=== PATIENT | male | born 1990 ===

== ENCOUNTER 2020-03-14 09:11 | Emergency (ER) | payer OTHER, SELFPAY ==
[2020-03-14 09:24] VITALS: BP 144/76; PULSE 74; RESP 18; TEMP 36.6; O2SAT 96; BMI 35.4
--- NOTE | 2020-03-14 09:36 | XR_ITS ---
EXAMINATION: RIGHT ANKLE AND RIGHT FOOT. CLINICAL INFORMATION: Right ankle/foot pain. COMPARISON: None TECHNIQUE: Right foot 3 views. Right ankle 2 views. FINDINGS: RIGHT ANKLE: There is a healed distal fibular fracture stabilized by metallic plate and screws. Also visualized reveal medial malleolar fracture with solitary screw. The ankle mortise and subtalar joints are normal. RIGHT FOOT: There is a small acute fracture at base of fifth metatarsal with displacement.. No additional fractures seen. There is mild soft tissue swelling lateral midfoot. XR/XR ankle RT min 3V IMPRESSION: Acute fracture with displacement base of fifth metatarsal . No other fractures seen.. There is mild lateral midfoot soft tissue swelling. Healed distal fibular and medial malleolar fractures with hardware in place. No recurrent new fracture seen in the ankle region.
--- NOTE | 2020-03-14 09:36 | XR_ITS ---
EXAMINATION: RIGHT ANKLE AND RIGHT FOOT. CLINICAL INFORMATION: Right ankle/foot pain. COMPARISON: None TECHNIQUE: Right foot 3 views. Right ankle 2 views. FINDINGS: RIGHT ANKLE: There is a healed distal fibular fracture stabilized by metallic plate and screws. Also visualized reveal medial malleolar fracture with solitary screw. The ankle mortise and subtalar joints are normal. RIGHT FOOT: There is a small acute fracture at base of fifth metatarsal with displacement.. No additional fractures seen. There is mild soft tissue swelling lateral midfoot. XR/XR foot RT min 3V IMPRESSION: Acute fracture with displacement base of fifth metatarsal . No other fractures seen.. There is mild lateral midfoot soft tissue swelling. Healed distal fibular and medial malleolar fractures with hardware in place. No recurrent new fracture seen in the ankle region.
[2020-03-14] MEDS: Ibuprofen 800 MG TABLET PO (09:44)
[2020-03-14] MEDS: oxyCODONE HCl Immed Release 5 MG TABLET PO (09:44)
--- NOTE | 2020-03-14 10:19 | ED_ITS ---
HPI - Extremity Injury (Lower) General Chief Complaint: Extremity Injury, Lower Stated Complaint: rt foot inj Time Seen by Provider: 03/14/20 09:18 Source: patient Mode of arrival: ambulatory Limitations: no limitations History of Present Illness HPI Narrative: 29yoM presenting to the ED c c/o of Rigt foot pain/swelling after he twisted his foot/ankle from falling down the last two steps from tripping over a pumpkin. denies head injury or loss of consciousness. Reports he has had a fracture in the past to the right ankle and has hardware there. Denies any other injuries complaints or concerns at this time. Related Data Previous Rx's Medication Instructions Recorded ibuprofen 800 mg PO Q8H PRN #14 tab 03/14/20 oxycodone-acetaminophen [Percocet] 1 tab PO Q6H PRN #10 tab 03/14/20 Allergies Allergy/AdvReac Type Severity Reaction Status Date / Time No Known Allergies Allergy Verified 03/14/20 09:26 Review of Systems Review of Systems: Constitutional : No changes in activity, No lethargy, No recent prior head injury, No agitation, No increased fussiness ENT/Mouth : No Ear Pain, No Nasal discharge/drainage Eyes: No Eye Pain, No Swelling, No Redness, No Foreign Body, No Vision Changes Cardiovascular : No Chest Pain, No SOB Respiratory : No Cough Gastrointestinal : No Nausea, No Vomiting, No abdominal Pain Genitourinary : No Dysuria, No Urinary Frequency, No Urinary Incontinence, No Urgency, No Flank Pain Musculoskeletal : + joint pain, No neck stiffness, No back pain/injury Skin : No lacerations Neuro : No unsteady gait, No Paresthesias, No Loss of Consciousness, No altered mental status, No Headache Yes all other systems are reviewed and are negative [facility] Past Medical History Attestation statement: The following information was validated with the patient. Medical History No known health problems Social History Social History Advance Directives: No Advance Directives Information Provided: No Physical Exam Vital Signs: Vital Signs: Last Vital Signs Temp 97.9 F 03/14/20 09:24 Pulse 74 03/14/20 09:24 Resp 18 12/07/20 09:24 BP 144/76 H 12/07/20 09:24 Pulse Ox 96 03/14/20 09:24 Body Mass Index 35.4 vital signs have been reviewed as normal and appeared to be correct. Blood pressure normal. Heart rate normal. Respiration rate normal. Temperature normal. Oxygen saturation normal. Appearance: Alert. Oriented X3. No acute distress. Head: Normal external exam. Normocephalic. Atraumatic. No Monroy signs noted. No raccoon eyes noted Eyes: PERRLA. EOMI. Conjunctiva and sclera normal. Eyelids normal. ENT: Pharynx normal. Uvula midline. Moist mucous membranes. Neck: Normal inspection. Neck supple. FROM. No adenopathy. No meningeal signs. CVS: Normal heart rate and rhythm. Heart sound normal. No murmurs noted. Pulses normal throughout. Respiratory: No respiratory distress. Painless inspiration. Breath sounds normal. No wheezes/rales/rhonchi noted. Chest nontender. No accessory muscle usage noted or decreased air movement noted. Back: Full range of motion noted. Skin: Skin warm and dry. Normal skin color. Normal skin turgor. No rashes/lesions/lacerations noted. Extremities: TTP of right lateral aspect of foot at the base of the fifth Metatarsal with soft tissue swelling and contusion noted. Tenderness to palpation mildly to right ankle with mild soft tissue swelling. Otherwise no obvious deformity to right ankle. No laxity noted. Tendons and ligaments appear to be intact. Otherwise all other Extremities exhibit normal range of motion and nontender. Neuro: Oriented X 3. No motor deficit. No sensory deficit. Reflexes normal. Course Course Course Narrative: 29-year-old male presenting to the ED after he sustained a mechanical fall at home injuring his right foot/ ankle. Denies head injury or loss of consciousness. X-rays obtained and acute fracture with displacement base of 5th metatarsal noted with mild soft tissue swelling. No new fractures to right ankle. I consulted with orthopedic FELICIA Doyle who recommended a boot and to follow up. Therefore will place in a boot instructions follow-up with orthopedics and treat symptomatic long instructions return if any new or worsening symptoms. Patient understands agrees the plan. Procedures Orthopedic Splinting/Casting Injury #1: Side: right Lower Extremity Injury Location: foot Lower Extremity Immobilizer: boot orthosis MDM - Extremity Injury (Lower) Medical Records Attestation: I reviewed the patient's medical records. Imaging Data Right ankle/foot: Attestation: I personally reviewed and interpreted this imaging study as follows: Radiologist's impression: IMPRESSION: Acute fracture with displacement base of fifth metatarsal . No other fractures seen.. There is mild lateral midfoot soft tissue swelling. Healed distal fibular and medial malleolar fractures with hardware in place. No recurrent new fracture seen in the ankle region. Discharge Plan Discharge Clinical Impression: Ankle sprain and strain, Fall Fracture of fifth metatarsal bone Qualifiers: Encounter type: initial encounter Fracture type: closed Fracture alignment: d isplaced Laterality: right Qualified Code(s): S92.351A - Displaced fracture of fifth metatarsal bone, right foot, initial encounter for closed fracture Patient Disposition: Home, Self-Care Instructions: Toe Fracture (ED), Walking Boot (ED) Prescriptions: New ibuprofen 800 mg tablet 800 mg PO Q8H PRN (Reason: pain) Qty: 14 RF: 0 oxycodone-acetaminophen [Percocet] 5-325 mg tablet 1 tab PO Q6H PRN (Reason: pain) Qty: 10 RF: 0 Referrals: Evin Roman MD [Physician] - 1 week Stand Alone Forms: Work/School Release Print Language: [place]
== END 2020-03-14 10:50 | disposition home or self-care (01) ==
PROVIDERS: Emergency Provider Emergency Medicine; PCP Internal Medicine
DX: S92.351A Displaced fracture of fifth metatarsal bone, right foot, initial encounter for closed fracture (principal); S96.911A Strain of unspecified muscle and tendon at ankle and foot level, right foot, initial encounter; W10.8XXA Fall (on) (from) other stairs and steps, initial encounter; Y93.9 Activity, unspecified; Y92.018 Other place in single-family (private) house as the place of occurrence of the external cause; Y99.9 Unspecified external cause status
CPT/HCPCS: 73610; 73630; 99283

== ENCOUNTER 2020-05-10 10:59 | Outpatient (REF) | payer OTHER, SELFPAY ==
[2020-05-10 13:56] LABS: MANUAL DIFF FLAG NO
[2020-05-10 14:05] LABS: Basophils Absolute Auto 0.1 X10*3/uL (0.0-0.2); Basophils Percent Auto 0.6 % (0-2); Eosinophils Absolute Auto 0.2 X10*3/uL (0.0-0.4); Eosinophils Percent Auto 1.9 % (0-4); Hematocrit 44.4 % (42-52); Hemoglobin 14.8 g/dl (14.0-18.0); Imm Gran Abs Auto 0.12 X10*3/uL (0.00-0.03); Imm Gran Pct Auto 1.2 % (0.0-0.4); Lymphocytes Absolute Auto 2.6 X10*3/uL (1.2-4.9); Lymphocytes Percent Auto 26.8 % (20-40); Mean Corpuscular HGB Conc 33.3 g/dl (31.0-36.0); Mean Corpuscular Hemoglobin 29.4 pg (27.0-33.0); Mean Corpuscular Volume 88.1 fL (80-98); Monocytes Absolute Auto 0.7 X10*3/uL (0.1-1.2); Monocytes Percent Auto 7.3 % (2-11); Neutrophils Percent Auto 62.2 % (45-73); Platelet Count 214 X10*3/uL (160-400); Red Blood Count 5.04 X10*6/uL (4.60-5.80); Red Cell Distribution Width 12.3 % (11.0-16.0); White Blood Count 9.6 X10*3/uL (4.8-10.8)
[2020-05-10 14:36] LABS: Alanine Aminotransferase 23 U/L (0-40); Albumin Level 4.7 g/dL (3.5-5.0); Alkaline Phosphatase 63 U/L (39-117); Anion Gap 13 (12-20); Aspartate Amino Transferase 17 U/L (5-37); Bilirubin Total 0.7 mg/dL (0.0-1.0); Blood Urea Nitrogen 13 mg/dL (9-16); Calcium 9.2 mg/dL (8.4-10.2); Carbon Dioxide 29 mmol/L (22-29); Chloride 100 mmol/L (96-108); Estimated Glomerular Filt Rate > 60; Glucose Fasting 78 mg/dL (60-99); Potassium 4.2 mmol/L (3.3-5.1); Sodium 138 mmol/L (135-145); Total Protein 7.7 g/dL (6.5-8.0)
== END 2020-05-10 11:00 | disposition home or self-care (01) ==
LOC: HO.10HDL 10:59
PROVIDERS: Visit Provider Dermatology
DX: L40.0 Psoriasis vulgaris (principal)
CPT/HCPCS: 36415; 80053; 85025

== ENCOUNTER 2020-06-21 09:12 | Outpatient (REF) | payer OTHER, SELFPAY ==
[2020-06-21 10:12] LABS: MANUAL DIFF FLAG NO
[2020-06-21 10:20] LABS: Basophils Absolute Auto 0.1 X10*3/uL (0.0-0.2); Basophils Percent Auto 0.6 % (0-2); Eosinophils Absolute Auto 0.1 X10*3/uL (0.0-0.4); Eosinophils Percent Auto 1.8 % (0-4); Hematocrit 43.7 % (42-52); Hemoglobin 14.4 g/dl (14.0-18.0); Imm Gran Abs Auto 0.04 X10*3/uL (0.00-0.03); Imm Gran Pct Auto 0.5 % (0.0-0.4); Lymphocytes Absolute Auto 2.2 X10*3/uL (1.2-4.9); Lymphocytes Percent Auto 27.7 % (20-40); Mean Corpuscular Hemoglobin 29.8 pg (27.0-33.0); Mean Corpuscular Volume 90.3 fL (80-98); Mean Platelet Volume 11.2 fL (9.4-12.4); Monocytes Absolute Auto 0.5 X10*3/uL (0.1-1.2); Monocytes Percent Auto 6.6 % (2-11); Neutrophils Absolute Auto 4.9 X10*3/uL (2.0-8.3); Neutrophils Percent Auto 62.8 % (45-73); Platelet Count 219 X10*3/uL (160-400); Red Blood Count 4.84 X10*6/uL (4.60-5.80); Red Cell Distribution Width 12.7 % (11.0-16.0); White Blood Count 7.8 X10*3/uL (4.8-10.8)
== END 2020-06-21 09:13 | disposition home or self-care (01) ==
LOC: HO.10HDL 09:12
PROVIDERS: Visit Provider Dermatology
DX: L40.0 Psoriasis vulgaris (principal)
CPT/HCPCS: 36415; 85025

== ENCOUNTER 2020-07-13 05:30 | Emergency (ER) | payer OTHER, SELFPAY ==
[2020-07-13 05:55] VITALS: BP 149/94; PULSE 59; RESP 16; TEMP 36.5; O2SAT 100; BMI 33.7
--- NOTE | 2020-07-13 06:27 | ED_ITS ---
HPI - General Adult General Chief complaint: Nausea/Vomiting/Diarrhea Stated complaint: ABD PAIN Time Seen by Provider: 07/13/20 06:16 Source: patient Mode of arrival: ambulatory Limitations: no limitations History of Present Illness HPI narrative: 29-year-old male who presents emergency department for evaluation of abdominal pain, diarrhea, nausea and vomiting. Patient states his symptoms started 2 hours prior to evaluation. He states these vomited too numerous times to count. States he has not been able to hold down any food or fluid. He has also had multiple episodes of loose, diarrheal stool. Denies any blood in the emesis or the stool. The patient is complaining of constant, mid epigastric pain, the pain is sharp and is 8/10 at its worst. The patient had 2 similar presentations in the past and was told that he had gastritis. He denied fever, chills, chest pain, shortness of breath, dyspnea on exertion, myalgias, arthralgias, change in his sense of smell. The patient has not had a COVID-19 infection, he has not been vaccinated for COVID-19 yet. The patient denies tobacco and alcohol use. He does smoke marijuana 4-5 times daily for at least 12 years. Related Data Previous Rx's Medication Instructions Recorded ibuprofen 800 mg PO Q8H PRN #14 tab 03/14/20 oxycodone-acetaminophen [Percocet] 1 tab PO Q6H PRN #10 tab 03/14/20 ondansetron 4 mg PO Q6-8H PRN #14 tab 07/13/20 Allergies Allergy/AdvReac Type Severity Reaction Status Date / Time No Known Allergies Allergy Verified 03/14/20 09:26 Review of Systems Review of Systems: Yes all other systems are reviewed and are negative [facility] Past Medical History [facility] Narrative: The patient has a history of psoriasis, he has had 2 previous episodes of intractable vomiting and was diagnosed with gastritis, he denies tobacco, alcohol use, he does smoke marijuana 4-5 times daily times 12 years. Medical History No known health problems Social History Social History Advance Directives: No Advance Directives Information Provided: No Physical Exam Vital Signs: Vital Signs: Last Vital Signs Temp 97.7 F 07/13/20 05:55 Pulse 64 07/13/20 08:20 Resp 16 07/13/20 05:55 BP 170/60 H 07/13/20 07:27 Pulse Ox 100 07/13/20 08:20 Body Mass Index 33.7 Const: General: cooperative and in distress (Actively dry heaving, appears in distress secondary to abdominal discomfort) Orientation/consciousness: oriented to person and oriented to place Limitations: no limitations HENMT: Head: Yes normal to inspection, Yes normocephalic and Yes atraumatic Ears: external ears normal General nose exam: Normal external nose present Face and sinus: Yes normal facial exam Mouth: Normal oral and palatal mucosa present Throat: Yes posterior oropharynx normal Eyes: Periorbital: periorbital findings normal Eyelids: Yes eyelids normal Conjunctivae: conjunctivae normal Sclerae: sclerae normal Corneas: corneas normal Pupils: Equal, round and reactive pupils present Direct Ophthalmoscopy: normal light reflex Neck: Neck: Yes full ROM, Yes no lymphadenopathy, Yes no meningeal signs, Yes trachea midline and Yes supple Chest: Chest palpation & inspection: normal inspection of the chest and normal palpation of entire chest wall Resp: Effort & Inspection: normal respiratory effort and able to speak in complete sentences Auscultation: clear to auscultation bilaterally Cardio: Rate: regular rate Rhythm: regular rhythm Heart sounds: S1 normal heart sound present, S2 normal heart sound present and no murmurs GI: Inspection: Yes normal to inspection Palpation (GI): Soft to palpation, Tenderness to palpation present (GI) in the epigastrum (Moderate tenderness), no guarding, not rigid and No hepatosplenomegaly present : General: Yes no CVA tenderness Back/Spine/Pelvis: Back: no CVA tenderness Cervical Spine: normal cervical lordosis Thoracic/Lumbar Spine: thoracic and lumbar spine normal to inspection Skin: Lesions: no lesions Rashes: no rashes Wounds: no wounds Neuro: General: oriented to person, oriented to place and no meningeal signs Cranial nerves: Yes CN's II-XII intact bilaterally and Yes Equal, round and reactive pupils present Cognition (Neuro): normal cognition Motor exam (neuro): 5/5 motor strength present throughout Extrem: General: Yes normal to inspection and Yes full ROM Psych: Appearance: well kempt Mental Status: mental status grossly normal Speech and movement: Normal speech and movement present Affect: normal affect Attitude: cooperative Thought process: Normal thought process present Thought content: Normal thought content present Course Course Course Narrative: 29-year-old male who presents emergency department for evaluation of nausea, vomiting, diarrhea and abdominal pain x2 hours. The patient has had 2 similar episodes of intractable vomiting in the past. The patient does use marijuana daily. Physical examination revealed that he was actively dry heaving appear to be in distress, vital signs revealed that he was hypertensive and slightly bradycardic. He did have moderate midepigastric tenderness. I did order a CBC, CMP, and lipase on this patient. His abdominal pain and vomiting was treated with Toradol 30 mg IV, Reglan 10 mg IV and Benadryl 50 mg IV. He was also ordered to get normal saline x1 L. 0853: The patient got some improvement with the initial IV medications but continued to have dry heaves, therefore he is ordered to get Haldol 5 mg IV. Patient states he is feeling significantly better and wants to go home. Patient's laboratory evaluation was unremarkable. I discussed cannabis hyperemesis syndrome/cyclic vomiting syndrome with the patient. I advised him to stop smoking marijuana. He was given a prescription for Zofran 4 mg ODT every 6-8 hours as needed for nausea vomiting. He was advised to follow-up with his PCP and return if his symptoms get worse or he develops any new symptoms that are concerning to him. Medical Decision Making Lab Data Result diagrams: 07/13/20 06:42 07/13/20 06:42 Labs: Lab Results 07/13/20 07/13/20 Range/Units 06:42 06:42 WBC 11.8 H (4.8-10.8) X10*3/uL RBC 4.98 (4.60-5.80) X10*6/uL Hgb 14.9 (14.0-18.0) g/dl Hct 44.1 (42-52) % MCV 88.6 (80-98) fL MCH 29.9 (27.0-33.0) pg MCHC 33.8 (31.0-36.0) g/dl RDW 12.7 (11.0-16.0) % Plt Count 193 (160-400) X10*3/uL MPV 11.3 (9.4-12.4) fL Immature Gran % (Auto) 0.5 H (0.0-0.4) % Neut % (Auto) 78.3 H (45-73) % Lymph % (Auto) 14.1 L (20-40) % [place] % (Auto) 6.2 (2-11) % Eos % (Auto) 0.5 (0-4) % Baso % (Auto) 0.4 (0-2) % Lymph # (Auto) 1.7 (1.2-4.9) X10*3/uL [place] # (Auto) 0.7 (0.1-1.2) X10*3/uL Eos # (Auto) 0.1 (0.0-0.4) X10*3/uL Baso # (Auto) 0.1 (0.0-0.2) X10*3/uL Abs Immat Gran (auto) 0.06 H (0.00-0.03) X10*3/uL Absolute Neuts (auto) 9.3 H (2.0-8.3) X10*3/uL Absolute Nucleated RBC 0.000 (0.0-0.012) X10*3/uL Nucleated RBC % (auto) 0.0 (0.0-0.2) /100WBC Sodium 138 (135-145) mmol/L Potassium 3.9 (3.3-5.1) mmol/L Chloride 104 (96-108) mmol/L Carbon Dioxide 24 (22-29) mmol/L Anion Gap 14 (12-20) BUN 17 H (9-16) mg/dL Creatinine 1.22 (0.5-1.4) mg/dL Estim Creat Clear Calc 104.0 Estimated GFR > 60 Random Glucose 129 H (60-115) mg/dL Calcium 9.1 (8.4-10.2) mg/dL Total Bilirubin 0.6 (0.0-1.0) mg/dL AST 68 H (5-37) U/L ALT 33 (0-40) U/L Alkaline Phosphatase 69 (39-117) U/L Total Protein 7.3 (6.5-8.0) g/dL Albumin 4.6 (3.5-5.0) g/dL Lipase 20 (8-78) U/L Discharge Plan Discharge Clinical Impression: Cyclic vomiting syndrome, Marijuana abuse Patient Disposition: Home, Self-Care Instructions: Cyclic Vomiting Syndrome (ED) Additional Instructions: Your laboratory evaluation was normal. Your presentation is consistent with marijuana hyperemesis syndrome/cyclic vomiting syndrome. Your recurrent episodes of vomiting and abdominal pain may be related to your marijuana use, you need to stop smoking marijuana and your symptoms will improve but it may take 3-6 months of not smoking marijuana before they resolve completely. Take Zofran (ondansetron) 4 mg, 1 pill dissolved in mouth every 6-8 hours as needed for nausea and vomiting. Follow-up with your doctor in 2 days. Please return to the emergency department if your symptoms get worse or if you develop any symptoms that are concerning to you. Prescriptions: New ondansetron 4 mg tablet,disintegrating 4 mg PO Q6-8H PRN (Reason: nausea and vomiting) Qty: 14 RF: 0 No Action ibuprofen 800 mg tablet 800 mg PO Q8H PRN (Reason: pain) Qty: 14 RF: 0 oxycodone-acetaminophen [Percocet] 5-325 mg tablet 1 tab PO Q6H PRN (Reason: pain) Qty: 10 RF: 0
[2020-07-13] MEDS: 0.9 % Sodium Chloride 1,000 ML 999 ML IV (06:53)
[2020-07-13 06:54] LABS: MANUAL DIFF FLAG NO
[2020-07-13] MEDS: Metoclopramide HCl 10 MG/2 ML VIAL IVPUSH (06:54)
[2020-07-13] MEDS: diphenhydrAMINE HCL 50 MG/ML VIAL IVPUSH (06:54)
[2020-07-13] MEDS: Ketorolac Tromethamine 30 MG/ML VIAL IVPUSH (06:54)
[2020-07-13 07:00] LABS: Basophils Absolute Auto 0.1 X10*3/uL (0.0-0.2); Basophils Percent Auto 0.4 % (0-2); Eosinophils Absolute Auto 0.1 X10*3/uL (0.0-0.4); Eosinophils Percent Auto 0.5 % (0-4); Hematocrit 44.1 % (42-52); Hemoglobin 14.9 g/dl (14.0-18.0); Imm Gran Abs Auto 0.06 X10*3/uL (0.00-0.03); Imm Gran Pct Auto 0.5 % (0.0-0.4); Lymphocytes Absolute Auto 1.7 X10*3/uL (1.2-4.9); Lymphocytes Percent Auto 14.1 % (20-40); Mean Corpuscular HGB Conc 33.8 g/dl (31.0-36.0); Mean Corpuscular Hemoglobin 29.9 pg (27.0-33.0); Mean Corpuscular Volume 88.6 fL (80-98); Mean Platelet Volume 11.3 fL (9.4-12.4); Monocytes Absolute Auto 0.7 X10*3/uL (0.1-1.2); Monocytes Percent Auto 6.2 % (2-11); Neutrophils Absolute Auto 9.3 X10*3/uL (2.0-8.3); Neutrophils Percent Auto 78.3 % (45-73); Platelet Count 193 X10*3/uL (160-400); Red Blood Count 4.98 X10*6/uL (4.60-5.80); Red Cell Distribution Width 12.7 % (11.0-16.0); White Blood Count 11.8 X10*3/uL (4.8-10.8)
[2020-07-13 07:27] VITALS: BP 170/60; PULSE 60; O2SAT 99
[2020-07-13 07:31] LABS: Alanine Aminotransferase 33 U/L (0-40); Albumin Level 4.6 g/dL (3.5-5.0); Alkaline Phosphatase 69 U/L (39-117); Anion Gap 14 (12-20); Aspartate Amino Transferase 68 U/L (5-37); Bilirubin Total 0.6 mg/dL (0.0-1.0); Blood Urea Nitrogen 17 mg/dL (9-16); Calcium 9.1 mg/dL (8.4-10.2); Carbon Dioxide 24 mmol/L (22-29); Chloride 104 mmol/L (96-108); Estimated Glomerular Filt Rate > 60; Glucose Random 129 mg/dL (60-115); Lipase 20 U/L (8-78); Potassium 3.9 mmol/L (3.3-5.1); Sodium 138 mmol/L (135-145); Total Protein 7.3 g/dL (6.5-8.0)
[2020-07-13] MEDS: Haloperidol Lactate 5 MG/ML VIAL IVPUSH (08:15)
[2020-07-13 08:20] VITALS: PULSE 64; O2SAT 100
== END 2020-07-13 09:04 | disposition home or self-care (01) ==
PROVIDERS: Emergency Provider Emergency Medicine Emergency Medical Services; PCP Internal Medicine
DX: R11.15 Cyclical vomiting syndrome unrelated to migraine (principal); F12.19 Cannabis abuse with unspecified cannabis-induced disorder; Z79.899 Other long term (current) drug therapy
CPT/HCPCS: 36415; 80053; 83690; 85025; 96365; 96375; 99283; J1200; J1885; J2765

== ENCOUNTER 2020-07-15 08:29 | Emergency (ER) | payer OTHER, SELFPAY ==
--- NOTE | ~2020-07-15 | CT_ITS ---
EXAMINATION: CT ABDOMEN AND PELVIS WITH CONTRAST CLINICAL INFORMATION: Vomiting upper abdominal pain COMPARISON: Abdominal ultrasound 08/26/2018 chest x-ray September 2019 TECHNIQUE: Multidetector volumetric images were obtained from the superior aspect of the liver through the pubic symphysis following administration 85 mL of Omnipaque 350 intravenous contrast. Sagittal and coronal reformatted images were obtained on the technologist's workstation. Oral contrast: No This CT examination was performed using dose optimization techniques as appropriate, variously including the following: *Automated exposure control *Adjustment of mA and/or kV according to patient size (this includes techniques or standardized protocols for targeted exams where dose is matched to indication/reason for exam; i.e. extremities or head) *Use of iterative reconstruction technique DLP: 647 mGy-cm FINDINGS: LUNG BASES: There is localized emphysematous change in the left lower lobe. There is a small rounded area of calcification measuring approximately 4 mm compatible with granuloma. LIVER, GALLBLADDER, AND BILIARY TREE: The liver is normal in size, shape, and attenuation. No focal hepatic lesion or biliary ductal dilatation is present. The gallbladder is unremarkable with no evidence of radiopaque gallstones, gallbladder wall thickening, or obvious pericholecystic inflammatory changes. PANCREAS: Unremarkable. SPLEEN: Unremarkable. ADRENAL GLANDS: Unremarkable. KIDNEYS AND URETERS: The kidneys are normal in size, shape, and attenuation. No hydronephrosis, hydroureter, or calculi seen. No perinephric stranding. BLADDER: Unremarkable. GASTROINTESTINAL TRACT: The small and large bowel are unremarkable. The appendix is unremarkable. ABDOMINAL WALL: No significant hernia is appreciated. LYMPH NODES: Normal. VASCULAR: Unremarkable. PELVIC VISCERA: Unremarkable. OSSEOUS STRUCTURES: There is arthrosis of the left hip with subchondral cystic change in the anterior acetabulum. No joint space narrowing. Overall mild arthrosis of. Minimal arthrosis of the sacroiliac joints with small subchondral cysts containing air anterior aspect of the joint on the sacral side. CT/CT abdomen pelvis w con IMPRESSION: No acute abnormality. Mild osteoarthritis of the left hip. Localized emphysematous change in the left lower lobe with a calcified granuloma. Possible secondary to old infectious process in the left lower lobe or congenital Minimal osteoarthritis of the sacroiliac joints. Of the abdomen is no atrophy is a severe is the only minimal narrowing in the
--- NOTE | 2020-07-15 08:45 | ED.NAVMDI ---
HPI - Nausea/Vomiting/Diarrhea General Chief complaint: Abdominal Pain Stated complaint: ABD PAIN Time Seen by Provider: 07/15/20 08:44 Source: patient Mode of arrival: ambulatory Limitations: no limitations History of Present Illness HPI Narrative: 29 yo male daily THC use here with n/v and burning upper abdominal pain stopped smoking but for only a couple of days - sent home with zofran, at this time c/o burning pain as well as n/v, heat and hot showers alleviate stomach pain MD elicited complaint: nausea, vomiting and abdominal pain Pertinent past history: cyclical vomiting Onset (ago): hour(s) Associated nausea: Yes Associated abdominal pain: Yes Location of pain: epigastric Radiation: epigastric Pain consistency: constant Severity: severe Quality: other (burning) Exacerbating factors: eating Relieving factors: none Context: marijuana use Associated symptoms: loss of appetite, malaise and nausea/vomiting Treatment prior to arrival: other (ODT zofran) Related Data Previous Rx's Medication Instructions Recorded ibuprofen 800 mg PO Q8H PRN #14 tab 03/14/20 oxycodone-acetaminophen [Percocet] 1 tab PO Q6H PRN #10 tab 03/14/20 ondansetron 4 mg PO Q6-8H PRN #14 tab 07/13/20 famotidine [Pepcid] 20 mg PO DAILY PRN #30 tab 07/15/20 metoclopramide HCl [Reglan] 10 mg PO Q6H PRN #20 tab 07/15/20 Allergies Allergy/AdvReac Type Severity Reaction Status Date / Time No Known Allergies Allergy Verified 03/14/20 09:26 Review of Systems Review of Systems: Constitutional : No Weight loss, No Fever, No Chills ENT/Mouth : No sore throat, No Rhinorrhea Eyes: No Swelling, No Redness Cardiovascular : No Chest Pain, No SOB, NoEdema Respiratory : No Cough, No Sputum, No Wheezing Gastrointestinal : Positive Nausea, Positive Vomiting, no Diarrhea, positive abdominal Pain, No Hematochezia, No Melena Genitourinary : No Dysuria, No Urinary Frequency, No Hematuria, No Urgency Musculoskeletal : No joint pain, No Myalgias, No Joint Swelling Skin : No Skin Lesions, No rash Neuro : No Weakness, No Numbness, No Dizziness, No Headache Psych : No Anxiety/Panic, No Depression Heme/Lymph: No Bruising, No Lymphadenopathy Endocrine : No Polyuria, No Polydipsia All other systems reviewed and are negative. Gastrointestinal: Gastrointestinal: Reports nausea PMFSH Past Medical History Attestation statement: The following information was validated with the patient. Medical History No known health problems Social History Social History (Updated 07/15/20 @ 09:13 by Christi Cruz DO) Alcohol intake: never Smoking Status: Never smoker Use of substances other than those prescribed or required for medical reasons: Yes Substance Use Type: Marijuana Advance Directives: No Advance Directives Information Provided: No Physical Exam Vital Signs: Vital Signs: Last Vital Signs Temp 98.1 F 07/15/20 11:38 Pulse 55 07/15/20 11:38 Resp 15 07/15/20 11:38 BP 150/73 H 07/15/20 11:38 Pulse Ox 98 07/15/20 11:38 Body Mass Index 32.9 Appearance: Alert. Oriented X3. Anxious in pain, mild acute distress. Eyes: Pupils equal, round and reactive to light. ENT: Pharynx normal. Neck: Normal inspection. Neck supple. CVS: Normal heart rate and rhythm. Pulses normal. Respiratory: No respiratory distress. Breath sounds normal. Abdomen: Soft and moderate epigastric ttp no rebound or guarding Skin: Skin warm and dry. pale skin color. Normal skin turgor. Extremities: No lower extremity edema. No calf ttp Neuro: Oriented X 3. No motor deficit. No sensory deficit. Course Course Course Narrative: feels much better, able to tolerate PO ready to go home MDM - Nausea/Vomiting/Diarrhea MDM Narrative Medical decision making narrative: 29 yo male with hx of vomiting in the past, c/o n/v and epigastric burning smoke THC daily - episode resolved with heat at this time will need labs, IVF, IV antiemetics possible gastritis vs THC induced cyclical vomiting syndrome, CT scan for duodenitis/pancreatitis, dispo per results and findings. Lab Data Result diagrams: 07/15/20 09:08 07/15/20 09:08 Labs: Lab Results 07/15/20 07/15/20 07/15/20 Range/Units 09:08 09:08 09:08 WBC 12.5 H (4.8-10.8) X10*3/uL RBC 5.08 (4.60-5.80) X10*6/uL Hgb 15.2 (14.0-18.0) g/dl Hct 44.8 (42-52) % MCV 88.2 (80-98) fL MCH 29.9 (27.0-33.0) pg MCHC 33.9 (31.0-36.0) g/dl RDW 12.6 (11.0-16.0) % Plt Count 239 (160-400) X10*3/uL MPV 11.0 (9.4-12.4) fL Immature Gran % (Auto) 0.6 H (0.0-0.4) % Neut % (Auto) 78.0 H (45-73) % Lymph % (Auto) 13.5 L (20-40) % [place] % (Auto) 6.9 (2-11) % Eos % (Auto) 0.4 (0-4) % Baso % (Auto) 0.6 (0-2) % Lymph # (Auto) 1.7 (1.2-4.9) X10*3/uL [place] # (Auto) 0.9 (0.1-1.2) X10*3/uL Eos # (Auto) 0.1 (0.0-0.4) X10*3/uL Baso # (Auto) 0.1 (0.0-0.2) X10*3/uL Abs Immat Gran (auto) 0.07 H (0.00-0.03) X10*3/uL Absolute Neuts (auto) 9.8 H (2.0-8.3) X10*3/uL Absolute Nucleated RBC 0.000 (0.0-0.012) X10*3/uL Nucleated RBC % (auto) 0.0 (0.0-0.2) /100WBC Hold Blue Top SEE NOTE Sodium 139 (135-145) mmol/L Potassium 4.0 (3.3-5.1) mmol/L Chloride 103 (96-108) mmol/L Carbon Dioxide 25 (22-29) mmol/L Anion Gap 15 (12-20) BUN 20 H (9-16) mg/dL Creatinine 1.38 (0.5-1.4) mg/dL Estim Creat Clear Calc 90.9 Estimated GFR > 60 Random Glucose 115 (60-115) mg/dL Calcium 9.3 (8.4-10.2) mg/dL Magnesium 2.2 (1.6-2.6) mg/dL Total Bilirubin 1.1 H (0.0-1.0) mg/dL Direct Bilirubin 0.5 (0.0-0.5) mg/dL AST 33 D (5-37) U/L ALT 36 (0-40) U/L Alkaline Phosphatase 65 (39-117) U/L Total Protein 7.5 (6.5-8.0) g/dL Albumin 4.8 (3.5-5.0) g/dL Lipase (8-78) U/L Urine Opiates Screen (Not Detect) Ur Barbiturates Screen (Not Detect) Ur Phencyclidine Scrn (Not Detect) Ur Amphetamines Screen (Not Detect) U Benzodiazepines Scrn (Not Detect) Urine Cocaine Screen (Not Detect) U Marijuana (THC) Screen (Not Detect) 07/15/20 07/15/20 Range/Units 09:08 10:09 WBC (4.8-10.8) X10*3/uL RBC (4.60-5.80) X10*6/uL Hgb (14.0-18.0) g/dl Hct (42-52) % MCV (80-98) fL MCH (27.0-33.0) pg MCHC (31.0-36.0) g/dl RDW (11.0-16.0) % Plt Count (160-400) X10*3/uL MPV (9.4-12.4) fL Immature Gran % (Auto) (0.0-0.4) % Neut % (Auto) (45-73) % Lymph % (Auto) (20-40) % [place] % (Auto) (2-11) % Eos % (Auto) (0-4) % Baso % (Auto) (0-2) % Lymph # (Auto) (1.2-4.9) X10*3/uL [place] # (Auto) (0.1-1.2) X10*3/uL Eos # (Auto) (0.0-0.4) X10*3/uL Baso # (Auto) (0.0-0.2) X10*3/uL Abs Immat Gran (auto) (0.00-0.03) X10*3/uL Absolute Neuts (auto) (2.0-8.3) X10*3/uL Absolute Nucleated RBC (0.0-0.012) X10*3/uL Nucleated RBC % (auto) (0.0-0.2) /100WBC Hold Blue Top Sodium (135-145) mmol/L Potassium (3.3-5.1) mmol/L Chloride (96-108) mmol/L Carbon Dioxide (22-29) mmol/L Anion Gap (12-20) BUN (9-16) mg/dL Creatinine (0.5-1.4) mg/dL Estim Creat Clear Calc Estimated GFR Random Glucose (60-115) mg/dL Calcium (8.4-10.2) mg/dL Magnesium (1.6-2.6) mg/dL Total Bilirubin (0.0-1.0) mg/dL Direct Bilirubin (0.0-0.5) mg/dL AST (5-37) U/L ALT (0-40) U/L Alkaline Phosphatase (39-117) U/L Total Protein (6.5-8.0) g/dL Albumin (3.5-5.0) g/dL Lipase 21 (8-78) U/L Urine Opiates Screen Not Detected (Not Detect) Ur Barbiturates Screen Not Detected (Not Detect) Ur Phencyclidine Scrn Not Detected (Not Detect) Ur Amphetamines Screen Not Detected (Not Detect) U Benzodiazepines Scrn Not Detected (Not Detect) Urine Cocaine Screen Not Detected (Not Detect) U Marijuana (THC) Screen POSITIVE H (Not Detect) Discharge Plan Discharge Clinical Impression: Cyclical vomiting, not intractable Patient Disposition: Home, Self-Care Instructions: Cyclic Vomiting Syndrome (ED) Additional Instructions: return to ED for any worsening symptoms or concerns STOP SMOKING MARIJUANA YOUR SYMPTOMS CAN LAST UP TO [address] SCAN RESULTS - INCIDENTAL FINDINGS PLEASE FOLLOW UP WITH YOUR DOCTOR CT/CT abdomen pelvis w con IMPRESSION: No acute abnormality. Mild osteoarthritis of the left hip. Localized emphysematous change in the left lower lobe with a calcified granuloma. Possible secondary to old infectious process in the left lower lobe or congenital. Minimal osteoarthritis of the sacroiliac joints. Prescriptions: New famotidine [Pepcid] 20 mg tablet 20 mg PO DAILY PRN (Reason: abdominal discomfort) Qty: 30 RF: 0 metoclopramide HCl [Reglan] 10 mg tablet 10 mg PO Q6H PRN (Reason: nausea and vomiting) Qty: 20 RF: 0 No Action ibuprofen 800 mg tablet 800 mg PO Q8H PRN (Reason: pain) Qty: 14 RF: 0 oxycodone-acetaminophen [Percocet] 5-325 mg tablet 1 tab PO Q6H PRN (Reason: pain) Qty: 10 RF: 0 ondansetron 4 mg tablet,disintegrating 4 mg PO Q6-8H PRN (Reason: nausea and vomiting) Qty: 14 RF: 0 Referrals: Brian House MD [Primary Care Provider] - 3 days Stand Alone Forms: Work/School Release
[2020-07-15 08:57] VITALS: BP 149/88; PULSE 62; RESP 16; TEMP 36.3; O2SAT 100; BMI 32.9
[2020-07-15 09:12] LABS: MANUAL DIFF FLAG NO
[2020-07-15] MEDS: 0.9 % Sodium Chloride 1,000 ML 999 ML IVCONT (09:16)
[2020-07-15] MEDS: diphenhydrAMINE HCL 50 MG/ML VIAL 25 MG IVPUSH (09:16)
[2020-07-15] MEDS: Metoclopramide HCl 10 MG/2 ML VIAL IVPUSH (09:17)
[2020-07-15] MEDS: Famotidine/PF 20 MG/2 ML VIAL IVPUSH (09:17)
[2020-07-15 09:19] LABS: Basophils Absolute Auto 0.1 X10*3/uL (0.0-0.2); Basophils Percent Auto 0.6 % (0-2); Eosinophils Absolute Auto 0.1 X10*3/uL (0.0-0.4); Eosinophils Percent Auto 0.4 % (0-4); Hematocrit 44.8 % (42-52); Hemoglobin 15.2 g/dl (14.0-18.0); Imm Gran Abs Auto 0.07 X10*3/uL (0.00-0.03); Imm Gran Pct Auto 0.6 % (0.0-0.4); Lymphocytes Absolute Auto 1.7 X10*3/uL (1.2-4.9); Lymphocytes Percent Auto 13.5 % (20-40); Mean Corpuscular HGB Conc 33.9 g/dl (31.0-36.0); Mean Corpuscular Hemoglobin 29.9 pg (27.0-33.0); Mean Corpuscular Volume 88.2 fL (80-98); Monocytes Absolute Auto 0.9 X10*3/uL (0.1-1.2); Monocytes Percent Auto 6.9 % (2-11); Neutrophils Absolute Auto 9.8 X10*3/uL (2.0-8.3); Platelet Count 239 X10*3/uL (160-400); Red Blood Count 5.08 X10*6/uL (4.60-5.80); Red Cell Distribution Width 12.6 % (11.0-16.0); White Blood Count 12.5 X10*3/uL (4.8-10.8)
[2020-07-15 09:38] LABS: Alanine Aminotransferase 36 U/L (0-40); Albumin Level 4.8 g/dL (3.5-5.0); Alkaline Phosphatase 65 U/L (39-117); Anion Gap 15 (12-20); Aspartate Amino Transferase 33 U/L (5-37); Bilirubin Direct 0.5 mg/dL (0.0-0.5); Bilirubin Total 1.1 mg/dL (0.0-1.0); Blood Urea Nitrogen 20 mg/dL (9-16); Calcium 9.3 mg/dL (8.4-10.2); Carbon Dioxide 25 mmol/L (22-29); Chloride 103 mmol/L (96-108); Creatinine Clr Calc Pharmacy 90.9; Estimated Glomerular Filt Rate > 60; Glucose Random 115 mg/dL (60-115); Magnesium 2.2 mg/dL (1.6-2.6); Sodium 139 mmol/L (135-145); Total Protein 7.5 g/dL (6.5-8.0)
[2020-07-15 09:40] LABS: Lipase 21 U/L (8-78)
[2020-07-15 10:07] VITALS: BP 169/87; PULSE 60; RESP 18; O2SAT 100
[2020-07-15] MEDS: Ketorolac Tromethamine 30 MG/ML VIAL IVPUSH (10:15)
[2020-07-15] MEDS: iohexoL 350 MG/ML 100 ML INFUS..BTL 85 ML IV (10:43)
[2020-07-15] MEDS: Haloperidol Lactate 5 MG/ML VIAL IM (11:01)
[2020-07-15 11:03] VITALS: RESP 16
[2020-07-15] MEDS: LORazepam 2 MG/ML VIAL 1 MG IVPUSH (11:21)
[2020-07-15 11:26] LABS: Amphetamine Screen Urine Not Detected (Not Detect); Barbiturates, Urine Not Detected (Not Detect); Benzodiazepines Screen Urine Not Detected (Not Detect); Cannabinoid Screen Urine POSITIVE (Not Detect); Cocaine Screen Urine Not Detected (Not Detect); Opiate Screen Urine Not Detected (Not Detect); Phencyclidine Screen Urine Not Detected (Not Detect)
[2020-07-15 11:38] VITALS: BP 150/73; PULSE 55; RESP 15; TEMP 36.7; O2SAT 98
== END 2020-07-15 12:56 | disposition home or self-care (01) ==
PROVIDERS: Emergency Provider Emergency Medicine; PCP Internal Medicine
DX: R11.15 Cyclical vomiting syndrome unrelated to migraine (principal); F12.90 Cannabis use, unspecified, uncomplicated; R10.13 Epigastric pain; Z79.899 Other long term (current) drug therapy
CPT/HCPCS: 36415; 74177; 80048; 80076; 80307; 83690; 83735; 85025; 96365; 96372; 96375; 99285; J1200; J1885; J2060; J2765; Q9967

== ENCOUNTER 2020-08-04 10:03 | Outpatient (REF) | payer OTHER, SELFPAY ==
--- NOTE | ~2020-08-04 | FL_ITS ---
EXAMINATION: XR GI SERIES CLINICAL INFORMATION: Nausea and vomiting COMPARISON: Previous CT of the abdomen and pelvis 07/15/2020 TECHNIQUE: Upper GI was performed using thin and thick barium and effervescent granules. FINDINGS: The esophagus is normal-appearing. No hernia or reflux is seen. Stomach and duodenum are normal-appearing. No fold thickening, mass, stricture or ulcer is seen. FLUOROSCOPY TIME: 1.4 minutes DOSE AREA PRODUCT: 21 hill per centimeter squared. 26 saved fluoroscopic images. FL/FL upper GI series IMPRESSION: Unremarkable examination.
== END 2020-08-04 10:04 | disposition home or self-care (01) ==
LOC: HO.XRAY 10:03
PROVIDERS: PCP Internal Medicine; Visit Provider Internal Medicine
DX: R11.10 Vomiting, unspecified (principal)
CPT/HCPCS: 74240

== ENCOUNTER 2020-11-17 12:06 | Outpatient (REF) | payer OTHER, SELFPAY ==
[2020-11-17 13:28] LABS: MANUAL DIFF FLAG NO
[2020-11-17 13:34] LABS: Basophils Absolute Auto 0.1 X10*3/uL (0.0-0.2); Basophils Percent Auto 0.7 % (0-2); Eosinophils Absolute Auto 0.1 X10*3/uL (0.0-0.4); Eosinophils Percent Auto 1.6 % (0-4); Hematocrit 45.9 % (42-52); Hemoglobin 15.5 g/dl (14.0-18.0); Imm Gran Abs Auto 0.04 X10*3/uL (0.00-0.03); Imm Gran Pct Auto 0.6 % (0.0-0.4); Lymphocytes Absolute Auto 1.9 X10*3/uL (1.2-4.9); Lymphocytes Percent Auto 27.3 % (20-40); Mean Corpuscular HGB Conc 33.8 g/dl (31.0-36.0); Mean Corpuscular Hemoglobin 29.9 pg (27.0-33.0); Mean Corpuscular Volume 88.6 fL (80-98); Mean Platelet Volume 11.6 fL (9.4-12.4); Monocytes Absolute Auto 0.5 X10*3/uL (0.1-1.2); Monocytes Percent Auto 7.1 % (2-11); Neutrophils Absolute Auto 4.4 X10*3/uL (2.0-8.3); Neutrophils Percent Auto 62.7 % (45-73); Platelet Count 233 X10*3/uL (160-400); Red Blood Count 5.18 X10*6/uL (4.60-5.80); Red Cell Distribution Width 12.8 % (11.0-16.0)
[2020-11-17 13:51] LABS: Alanine Aminotransferase 15 U/L (0-40); Albumin Level 4.9 g/dL (3.5-5.0); Alkaline Phosphatase 62 U/L (39-117); Anion Gap 12 (12-20); Aspartate Amino Transferase 15 U/L (5-37); Bilirubin Total 1.1 mg/dL (0.0-1.0); Blood Urea Nitrogen 13 mg/dL (9-16); Calcium 9.7 mg/dL (8.4-10.2); Carbon Dioxide 24 mmol/L (22-29); Chloride 105 mmol/L (96-108); Estimated Glomerular Filt Rate > 60; Glucose Random 88 mg/dL (60-115); Potassium 4.4 mmol/L (3.3-5.1); Sodium 137 mmol/L (135-145); Total Protein 7.9 g/dL (6.5-8.0)
[2020-11-18 04:29] LABS: HBc Num1 0.07 S/CO (0.00-0.79); HBsAGNum1 0.19 S/CO (0.00-0.99); Hepatitis B Core Antibody Nonreactive (Nonreactive); Hepatitis B Surface Antigen Negative (Negative); ~HepC Num1 1.23 S/CO (0.00-0.79); ~Hepatitis C Antibody Reactive (Nonreactive)
[2020-11-18 04:40] LABS: HBS Num1 101.64 mIU/mL (0-7.99); ~Hepatitis B Surface Antibody REACTIVE (Nonreactive)
[2020-11-19 21:26] LABS: TS Negative Control Passed; TS Panel A 0; TS Panel B 1; TS Positive Control Passed; TSpotTB Negative (SeeBelow)
== END 2020-11-17 12:07 | disposition home or self-care (01) ==
LOC: HO.10HDL 12:06
PROVIDERS: PCP Internal Medicine; Visit Provider Dermatology
DX: L40.0 Psoriasis vulgaris (principal)
CPT/HCPCS: 36415; 80053; 85025; 86481; 86704; 86706; 86803; 87340

== ENCOUNTER 2021-01-24 11:14 | Outpatient (REF) | payer OTHER, SELFPAY ==
[2021-01-24 14:29] LABS: Amphetamine Screen Urine Not Detected (Not Detect); Barbiturates, Urine Not Detected (Not Detect); Benzodiazepines Screen Urine Not Detected (Not Detect); Cannabinoid Screen Urine Not Detected (Not Detect); Cocaine Screen Urine Not Detected (Not Detect); Fentanyl, urine Not Detected (Not Detect); Opiate Screen Urine Not Detected (Not Detect); Phencyclidine Screen Urine Not Detected (Not Detect)
== END 2021-01-24 11:15 | disposition home or self-care (01) ==
LOC: HO.10HDL 11:14
PROVIDERS: Visit Provider Internal Medicine
DX: Z02.1 Encounter for pre-employment examination (principal)
CPT/HCPCS: 80307

== ENCOUNTER 2021-02-08 16:12 | Outpatient (REF) | payer OTHER, SELFPAY ==
--- NOTE | ~2021-02-08 | XR_ITS ---
EXAMINATION: XR LUMBOSACRAL SPINE CLINICAL INFORMATION: Back pain. COMPARISON: 02/20/2017 TECHNIQUE: Three views of the lumbosacral spine. FINDINGS: The vertebral bodies and posterior elements are normal. Mild disc space narrowing at L4-L5. Vertebral body alignment is maintained. The sacroiliac joints are symmetric. The sacrum appears intact. The paraspinal soft tissues are normal. Normal bowel gas pattern. XR/XR lumbar spine 2-3V IMPRESSION: Disc space narrowing of L4-L5, fairly similar to prior.
== END 2021-02-08 16:13 | disposition home or self-care (01) ==
LOC: HO.XRAY 16:12
PROVIDERS: Visit Provider Internal Medicine
DX: M54.41 Lumbago with sciatica, right side (principal)
CPT/HCPCS: 72100

== ENCOUNTER 2021-03-06 09:00 | Outpatient (RCR) | payer OTHER, SELFPAY ==
--- NOTE | 2021-02-16 13:56 | MHC.PT.EP ---
[facility] [place] Office [place] Office [place] Office [address] Cassidy Burroughs [address] [phone] F: [phone] F: [phone] F: [phone] F: [phone] Physical Therapy Plan of Care Date of Evaluation: Date of Surgery: Diagnosis: R sciatica Assessment: Pt is a motivated 30yo M who presents to PT with pain from R low back and hip that radiates down his RLE. He presents today with current impairments in pain, decreased lumbar ROM, soft tissue restrictions throughout R glute med/max/piriformis, decreased hamstring length, decreased hip/glute strength, and impaired body mechanics. His signs and symptoms may be consistent with R sided sciatica. He is limited functionally by prolonged sitting and standing. He is an excellent candidate for skilled PT services to address current impairments in order to facilitate return to PLOF. 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 Manual therapy to restore motion and function. Therapeutic exercise to improve strength and flexibility. Neuromuscular re-education for posture and balance. Therapeutic activities to return to functional activities of daily living. Electronically signed by: Dian Clayton, PT, DPT Please sign and return to therapist. Thank you for your referral.
--- NOTE | 2021-03-15 15:56 | MHC.PT.DC ---
[facility] [place] Office [place] Office [place] Office [address] Cassidy Burroughs [address] [phone] F: [phone] F: [phone] F: [phone] F: [phone] Physical Therapy Discharge Report Diagnosis: R sciatica Date of Surgery: Date of Evaluation: 02/16/21 Date of Discharge: 03/15/21 Treatments to Date: 3 Cancellations to Date: 0 No Shows to Date: 0 Discharge Status: Patient Elected to Stop Discharge Summary: Pt was seen for skilled PT services from 02/16/21-03/06/21. He attended 3 PT visits and did not schedule any additional PT visits. [facility] customer service receptionist called pt on 03/15/21 and pt reports he would like to participate however he does not have the time to commit to PT secondary to his work schedule and he would like to self D/C at this time. Pt is aware if he decides he would like to continue he would need to follow up with MD for new referral and pt verbalized understanding. Pt is being D/C from skilled PT services at this time. Electronically signed by: Dian Clayton, PT, DPT Please sign and return to therapist. Thank you for your referral.
== END 2021-03-15 15:57 | disposition home or self-care (01) ==
LOC: HO.PT 09:00
PROVIDERS: PCP Internal Medicine; Visit Provider Internal Medicine
DX: M54.31 Sciatica, right side (principal)
CPT/HCPCS: 97110; 97161

== ENCOUNTER 2021-05-18 14:39 | Outpatient (REF) | payer OTHER, SELFPAY ==
[2021-05-18 14:59] LABS: COVID-19 Test Negative (Negative)
== END 2021-05-18 14:40 | disposition home or self-care (01) ==
LOC: HO.LNP 14:39
PROVIDERS: Visit Provider Internal Medicine
DX: Z20.822 Contact with and (suspected) exposure to COVID-19 (principal); R50.9 Fever, unspecified; J02.9 Acute pharyngitis, unspecified
CPT/HCPCS: 87635

== ENCOUNTER 2021-08-28 13:25 | Outpatient (REF) | payer OTHER, SELFPAY ==
[2021-08-28 14:19] LABS: COVID-19 Test Negative (Negative)
== END 2021-08-28 13:26 | disposition home or self-care (01) ==
LOC: HO.LAB 13:25
PROVIDERS: PCP Internal Medicine; Visit Provider Internal Medicine
DX: Z20.822 Contact with and (suspected) exposure to COVID-19 (principal)
CPT/HCPCS: 87635; C9803

== ENCOUNTER 2022-01-10 07:19 | Outpatient (REF) | payer OTHER, SELFPAY ==
--- NOTE | ~2022-01-10 | MR_ITS ---
EXAMINATION: MR SHOULDER WITHOUT CONTRAST, RIGHT CLINICAL INFORMATION: Right shoulder pain following an injury. Reinjured on 12/23/2021. Weakness. COMPARISON: None TECHNIQUE: MRI of the shoulder without contrast was performed on a high-field scanner. FINDINGS: ROTATOR CUFF: Mild supraspinatus and moderate infraspinatus tendinosis without a full-thickness rotator cuff tendon tear. Mild subscapularis tendinosis. No muscle atrophy or fatty infiltration. BICEPS: Intact. CORACOACROMIAL ARCH: The undersurface of the acromion is flat with no subacromial spur. Small acromioclavicular marginal osteophytes. Marrow and capsular edema at the acromioclavicular joint without an associated fracture line. Mild adjacent soft tissue edema. Findings could indicate a nondisplaced acromioclavicular joint injury. Intact coracoclavicular ligament. LABRUM/CAPSULE: Fluid signal within the undersurface of the anterior and anteroinferior labrum with a small anteroinferior paralabral cyst measuring up to 0.4 cm, consistent with nondisplaced undersurface tearing. GLENOHUMERAL JOINT/MARROW: Intact articular cartilage. No acute glenohumeral injury. Small joint effusion. MR/MR shoulder RT wo con IMPRESSION: 1. Nondisplaced undersurface tear of the anterior and anteroinferior labrum with a small paralabral cyst measuring up to 0.4 cm. 2. Moderate infraspinatus with mild supraspinatus and subscapularis tendinosis. No full-thickness rotator cuff tendon tear. 3. Marrow and capsular edema at the acromioclavicular joint without fracture or dislocation. Adjacent soft tissue edema. Findings could indicate a nondisplaced meniscocapsular injury. No coracoclavicular ligament injury. 4. Small glenohumeral joint effusion.
== END 2022-01-10 07:20 | disposition home or self-care (01) ==
LOC: HO.MRI 07:19
PROVIDERS: Visit Provider Internal Medicine
DX: S49.91XA Unspecified injury of right shoulder and upper arm, initial encounter (principal)
CPT/HCPCS: 73221

== ENCOUNTER 2022-02-15 06:10 | Outpatient (REF) | payer OTHER, SELFPAY ==
--- NOTE | ~2022-02-15 | XR_ITS ---
EXAMINATION: XR SHOULDER, RIGHT CLINICAL INFORMATION: Right knee pain COMPARISON: None TECHNIQUE: AP external rotation, Grashey, scapular Y, and axillary views of the right shoulder. FINDINGS: The bones and soft tissues are normal. No fracture. Glenohumeral and acromioclavicular alignment is anatomic with normal joint space. No abnormal soft tissue calcifications. XR/XR shoulder RT min 2V IMPRESSION: Normal right shoulder.
== END 2022-02-15 06:11 | disposition home or self-care (01) ==
LOC: HO.HOSX 06:10
PROVIDERS: Visit Provider Physician Assistant
DX: M25.511 Pain in right shoulder (principal); M25.311 Other instability, right shoulder
CPT/HCPCS: 73030; 99202

== ENCOUNTER 2022-05-07 11:34 | Outpatient (REF) | payer OTHER, SELFPAY ==
[2022-05-07 13:37] LABS: MANUAL DIFF FLAG NO
[2022-05-07 14:23] LABS: Basophils Absolute Auto 0.1 X10*3/uL (0.0-0.2); Basophils Percent Auto 0.7 % (0-2); Eosinophils Absolute Auto 0.1 X10*3/uL (0.0-0.4); Eosinophils Percent Auto 1.8 % (0-4); Hematocrit 45.5 % (42.0-52.0); Hemoglobin 15.5 g/dl (14.0-18.0); Imm Gran Abs Auto 0.05 X10*3/uL (0.00-0.03); Imm Gran Pct Auto 0.7 % (0.0-0.4); Lymphocytes Absolute Auto 1.8 X10*3/uL (1.2-4.9); Lymphocytes Percent Auto 24.9 % (20-40); Mean Corpuscular HGB Conc 34.1 g/dl (31.0-36.0); Mean Corpuscular Hemoglobin 29.9 pg (27.0-33.0); Mean Corpuscular Volume 87.7 fL (80.0-98.0); Mean Platelet Volume 11.6 fL (9.4-12.4); Monocytes Absolute Auto 0.6 X10*3/uL (0.1-1.2); Neutrophils Absolute Auto 4.7 x10*3/uL (2.0-8.3); Neutrophils Percent Auto 63.9 % (45-73); Platelet Count 205 X10*3/uL (160-400); Red Blood Count 5.19 X10*6/uL (4.60-5.80); Red Cell Distribution Width 12.5 % (11.0-16.0); White Blood Count 7.3 X10*3/uL (4.8-10.8)
[2022-05-07 14:42] LABS: Alanine Aminotransferase 47 U/L (0-40); Albumin Level 4.4 g/dL (3.5-5.0); Alkaline Phosphatase 55 U/L (39-117); Anion Gap 14 (12-20); Aspartate Amino Transferase 34 U/L (5-37); Bilirubin Direct 0.2 mg/dL (0.0-0.5); Bilirubin Total 0.7 mg/dL (0.0-1.0); Blood Urea Nitrogen 12 mg/dL (9-16); Calcium 9.1 mg/dL (8.4-10.2); Carbon Dioxide 25 mmol/L (22-29); Chloride 105 mmol/L (96-108); Estimated Glomerular Filt Rate > 60; Glucose Random 87 mg/dL (60-115); Potassium 4.4 mmol/L (3.3-5.1); Sodium 140 mmol/L (135-145); Total Protein 7.4 g/dL (6.5-8.0)
[2022-05-09 15:22] LABS: TS Negative Control Passed; TS Panel A 1; TS Panel B 0; TS Positive Control Passed; TSpotTB Negative (Negative)
== END 2022-05-07 11:35 | disposition home or self-care (01) ==
LOC: HO.10HDL 11:34
PROVIDERS: Visit Provider Dermatology
DX: Z11.1 Encounter for screening for respiratory tuberculosis (principal); L40.0 Psoriasis vulgaris
CPT/HCPCS: 36415; 80048; 80076; 85025; 86481

== ENCOUNTER → 2022-09-07 13:35 | Outpatient (BNVA) | payer OTHER, SELFPAY | PROVIDERS: PCP Internal Medicine; Visit Provider Internal Medicine | DX: M77.12 Lateral epicondylitis, left elbow (principal) | CPT/HCPCS: 73080; 99203 ==

== ENCOUNTER → 2022-09-14 09:47 | Outpatient (BNVA) | payer OTHER, SELFPAY | PROVIDERS: PCP Internal Medicine; Visit Provider Internal Medicine | DX: M77.12 Lateral epicondylitis, left elbow (principal) | CPT/HCPCS: 99213 ==

== ENCOUNTER 2022-09-19 09:08 | Outpatient (REF) | payer OTHER, SELFPAY ==
[2022-09-19 09:29] LABS: MANUAL DIFF FLAG NO
[2022-09-19 09:38] LABS: Basophils Absolute Auto 0.1 X10*3/uL (0.0-0.2); Basophils Percent Auto 0.6 % (0-2); Eosinophils Absolute Auto 0.1 X10*3/uL (0.0-0.4); Eosinophils Percent Auto 1.7 % (0-4); Hematocrit 45.9 % (42.0-52.0); Hemoglobin 15.4 g/dl (14.0-18.0); Imm Gran Abs Auto 0.08 X10*3/uL (0.00-0.03); Lymphocytes Percent Auto 24.9 % (20-40); Mean Corpuscular HGB Conc 33.6 g/dl (31.0-36.0); Mean Corpuscular Hemoglobin 29.6 pg (27.0-33.0); Mean Corpuscular Volume 88.3 fL (80.0-98.0); Mean Platelet Volume 10.5 fL (9.4-12.4); Monocytes Absolute Auto 0.6 X10*3/uL (0.1-1.2); Monocytes Percent Auto 7.7 % (2-11); Neutrophils Absolute Auto 5.2 x10*3/uL (2.0-8.3); Neutrophils Percent Auto 64.1 % (45-73); Platelet Count 187 X10*3/uL (160-400); Red Cell Distribution Width 12.2 % (11.0-16.0); White Blood Count 8.1 X10*3/uL (4.8-10.8)
[2022-09-19 10:15] LABS: Alanine Aminotransferase 17 U/L (0-40); Albumin Level 4.3 g/dL (3.5-5.0); Alkaline Phosphatase 52 U/L (39-117); Anion Gap 14 (12-20); Aspartate Amino Transferase 17 U/L (5-37); Bilirubin Total 0.3 mg/dL (0.0-1.0); Blood Urea Nitrogen 16 mg/dL (9-16); Calcium 9.1 mg/dL (8.4-10.2); Carbon Dioxide 22 mmol/L (22-29); Chloride 106 mmol/L (96-108); Estimated Glomerular Filt Rate > 60; Glucose Random 103 mg/dL (60-115); Lipase 45 U/L (8-78); Potassium 4.1 mmol/L (3.3-5.1); Sodium 138 mmol/L (135-145); Total Protein 7.1 g/dL (6.5-8.0)
[2022-09-24 19:32] LABS: Transglutaminase Ab IgG <1.0 U/mL
== END 2022-09-19 09:09 | disposition home or self-care (01) ==
LOC: HO.LAB 09:08
PROVIDERS: PCP Internal Medicine; Visit Provider Internal Medicine
DX: R10.9 Unspecified abdominal pain (principal); L40.9 Psoriasis, unspecified; R63.4 Abnormal weight loss
CPT/HCPCS: 36415; 80053; 83690; 85025; 86364

== ENCOUNTER → 2022-09-25 10:42 | Outpatient (BNVA) | payer OTHER, SELFPAY | PROVIDERS: PCP Internal Medicine; Visit Provider Internal Medicine | DX: M77.12 Lateral epicondylitis, left elbow (principal) | CPT/HCPCS: 99213 ==

== ENCOUNTER 2022-10-12 10:31 | Outpatient (REF) | payer OTHER, SELFPAY ==
--- NOTE | ~2022-10-12 | US_ITS ---
EXAMINATION: US ABDOMEN COMPLETE CLINICAL INFORMATION: Abdominal pain, diarrhea. COMPARISON: CT abdomen and pelvis with contrast 07/15/2020. Ultrasound abdomen complete 08/26/2018. TECHNIQUE: Real-time imaging of the abdominal viscera. FINDINGS: PANCREAS: Normal. No abnormal mass or peripancreatic inflammatory change. ABDOMINAL AORTA: The proximal, mid, and distal segments are normal in caliber. INFERIOR VENA CAVA: Visualized portions are normal. LIVER: The liver is normal in size. The liver contour is normal. There is diffuse homogeneously increased echotexture consistent with fatty infiltration. No focal hepatic lesion. There is no intrahepatic biliary duct dilatation seen. GALLBLADDER: Normal. The gallbladder is physiologically distended without evidence of stones, sludge, polyps, wall thickening or pericholecystic fluid. COMMON BILE DUCT: Normal in caliber measuring 0.4 cm in diameter. RIGHT KIDNEY: Normal. No hydronephrosis. No renal calculi or focal parenchymal lesions. The kidney measures 11.3 cm in maximum dimension. LEFT KIDNEY: Normal. No hydronephrosis. No renal calculi or focal parenchymal lesions. The kidney measures 12.5 cm in maximum dimension. SPLEEN: Normal. The spleen measures 11.2 cm in maximum dimension. FREE FLUID: None. US/US abdomen complete IMPRESSION: Fatty infiltration of the liver.
== END 2022-10-12 10:32 | disposition home or self-care (01) ==
LOC: HO.US 10:31
PROVIDERS: PCP Internal Medicine; Visit Provider Internal Medicine
DX: R10.84 Generalized abdominal pain (principal)
CPT/HCPCS: 76700

== ENCOUNTER → 2022-10-16 08:14 | Outpatient (BNVA) | payer OTHER, SELFPAY | PROVIDERS: PCP Internal Medicine; Visit Provider Internal Medicine | DX: M77.12 Lateral epicondylitis, left elbow (principal) | CPT/HCPCS: 99213 ==

== ENCOUNTER → 2022-10-30 07:42 | Outpatient (BNVA) | payer OTHER, SELFPAY | PROVIDERS: PCP Internal Medicine; Visit Provider Physician Assistant Medical | DX: M77.12 Lateral epicondylitis, left elbow (principal) | CPT/HCPCS: 99213 ==

== ENCOUNTER → 2022-11-05 10:37 | Outpatient (BNVA) | payer SELFPAY | PROVIDERS: PCP Internal Medicine; Visit Provider Physician Assistant Medical | DX: Z02.79 Encounter for issue of other medical certificate (principal) ==

== ENCOUNTER 2022-11-07 10:00 | Outpatient (RCR) | payer OTHER, SELFPAY ==
--- NOTE | 2022-09-21 13:13 | MHC.OT.EP ---
[address] [phone] Occupational Therapy Plan of Care Patient Name: Korin Rick Date of Evaluation: 09/21/22 Diagnosis: Left lateral epicondylitis Pain Location: 0=8 Achy . left elbow , proximal forearm. 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 Pt reports a slight improvement in pain with Naproxen , avoiding use of his left arm and being out of work over the past two weeks. 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 Treatment Plan: Therapeutic Exercise Therapeutic Activity Home Exercise Program Patient Education ADL Training Ultrasound Iontophoresis Electronically Signed By: Wendy Rosenthal OT CHT CLT Please Sign and return to therapist. Thank you once again for your referral.
--- NOTE | 2022-11-07 11:02 | MHC.OT.OP ---
[address] [phone] F: [phone] Occupational Therapy Progress Note Patient Name: Korin Rick Diagnosis: Left lateral epicondylitis Date of Surgery: Date of Evaluation: 09/21/22 Treatments to Date: 17 Cancellations to Date: No Shows to Date: Subjective: Pt reports elbow with discomfort only , avoiding heavy lifting Work driving only Pain Score: 0 Pain Location: left elbow Objective Measures: Status: Not Progressing Assessment: Mostly pain free avoiding heavy lifting . Reports discomfort w/ wrist curls, bicep curls at 10 and 15 lb, gross grasping and simulated work tasks at moderate resistance. 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 No significant change in pain, strength or activity tolerance over the past few weeks. Short Term Goals: Left elbow pain <5/10 with light activity MET Indep with HEP MET Demo elbow protection techniques with daily activities MET Left bobbin washer to 60 lb MET [facility] Goals: Left elbow pain free with light to mod activity with elbow protection and modified tech as able MET Left bobbin washer to greater than 80 lb. MET Frequency and Duration: The patient will be seen 3x wk , x 6 wks Treatment Plan: Therapeutic Exercise Therapeutic Activity Home Exercise Program Patient Education ADL Training Ultrasound Iontophoresis Electronically Signed By: Wendy Rosenthal OT CHT CLT Reviewed/agree with student documentation: Therapist:
== END 2022-12-14 08:49 | disposition home or self-care (01) ==
LOC: HO.OT 10:00
PROVIDERS: PCP Internal Medicine; Visit Provider Internal Medicine
DX: M77.12 Lateral epicondylitis, left elbow (principal)
CPT/HCPCS: 97033; 97110; 97140; 97165; 97530

== ENCOUNTER → 2022-11-08 14:55 | Outpatient (BNVA) | payer OTHER, SELFPAY | PROVIDERS: PCP Internal Medicine; Visit Provider Internal Medicine | DX: M77.12 Lateral epicondylitis, left elbow (principal) | CPT/HCPCS: 99213 ==

== ENCOUNTER 2023-01-02 13:42 | Outpatient (REF) | payer OTHER, MEDICAID, SELFPAY ==
[2023-01-02 14:34] LABS: Influenza A PCR NEGATIVE (Negative); Influenza B PCR NEGATIVE (Negative); Resp Syncy Virus RNA Qual PCR NEGATIVE (Negative); SARS COV2 PCR INHOUSE NEGATIVE (Negative)
== END 2023-01-02 13:43 | disposition home or self-care (01) ==
LOC: HO.LNP 13:42
PROVIDERS: Visit Provider Internal Medicine
DX: Z20.822 Contact with and (suspected) exposure to COVID-19 (principal); R51.9 Headache, unspecified
CPT/HCPCS: 0241U

== ENCOUNTER 2023-05-24 10:49 | Outpatient (REF) | payer OTHER, SELFPAY ==
[2023-05-26 20:27] LABS: TS Negative Control Passed; TS Panel A 1; TS Panel B 0; TS Positive Control Passed; TSpotTB Negative (Negative)
== END 2023-05-24 10:50 | disposition home or self-care (01) ==
LOC: HO.10HDL 10:49
PROVIDERS: Visit Provider Dermatology
DX: L40.0 Psoriasis vulgaris (principal); Z79.899 Other long term (current) drug therapy
CPT/HCPCS: 36415; 86481

== ENCOUNTER 2023-08-26 14:33 | Outpatient (REF) | payer OTHER, SELFPAY ==
[2023-08-26 15:16] LABS: Influenza A PCR NEGATIVE (Negative); Influenza B PCR NEGATIVE (Negative); Resp Syncy Virus RNA Qual PCR NEGATIVE (Negative); SARS COV2 PCR INHOUSE NEGATIVE (Negative)
== END 2023-08-26 14:34 | disposition home or self-care (01) ==
LOC: HO.LNP 14:33
PROVIDERS: Visit Provider Internal Medicine
DX: R52 Pain, unspecified (principal)
CPT/HCPCS: 0241U

== ENCOUNTER → 2023-11-05 11:33 | Outpatient (BNVA) | payer OTHER, SELFPAY | PROVIDERS: PCP Internal Medicine; Visit Provider Physician Assistant Medical | DX: S46.911A Strain of unspecified muscle, fascia and tendon at shoulder and upper arm level, right arm, initial encounter (principal); X50.0XXA Overexertion from strenuous movement or load, initial encounter; M25.311 Other instability, right shoulder | CPT/HCPCS: 73030; 99203 ==

== ENCOUNTER → 2023-11-12 13:26 | Outpatient (BNVA) | payer OTHER, SELFPAY | PROVIDERS: PCP Internal Medicine; Visit Provider Physician Assistant Medical | DX: M24.411 Recurrent dislocation, right shoulder (principal); S46.911D Strain of unspecified muscle, fascia and tendon at shoulder and upper arm level, right arm, subsequent encounter; X50.0XXD Overexertion from strenuous movement or load, subsequent encounter | CPT/HCPCS: 99213 ==

== ENCOUNTER 2023-11-25 13:24 | Outpatient (AMB) | payer OTHER, SELFPAY ==
--- NOTE | 2023-11-25 13:52 | MHC.OFFVIS ---
Intake Visit Reasons: Workers comp: Rt shoulder pain and instability Intake Note: Parveen is a 31 year old right hand dominant male presents today as a new patient for an evaluation of right shoulder pain. MRI obtained. His pain started a few years ago while playing football, he recently re-injured his shoulder playing football. At his last visit in 2022 it was recommended that he proceed with surgical intervention - right shoulder capsular plication with possible labral repair and possible biceps tenodesis. Allergies No Known Allergies Allergy (Verified 03/14/22 15:48) HPI HPI Workers comp: Rt shoulder pain and instability : Details: Parveen a 31 yr old rt hand dominant male presents today as a new patient for an evaluation of rt shoulder pain. MRI obtained. His pain started many years ago while playing football. He was doing well for many years until he started a new job and this has required lifting. He was lifting something out of the trash receptacle and his shoulder spontaneously dislocated. He has since had multiple dislocations including while sleeping at night. He denies numbness and tingling. He has an MRI scheduled. [facility] Medical History Psoriasis Surgical History History of ankle surgery [place] teeth extracted Social History Alcohol intake: never Patient Tobacco Use Status: Former Tobacco user Substance Use Type: Marijuana Current occupational status: employed Current occupation: instructor [employer] Physical Exam Extrem Other: Full range of motion right shoulder. Positive apprehension and relocation test. 1+ sulcus in neutral only. Results Reviewed Results Reviewed: I personally reviewed relevant radiographs. Nl shoulder radiographs Assessment & Plan Assessment & Plan (1) Instability of right shoulder joint: Code(s): M25.311 - Other instability, right shoulder Category: Medical Plan: This is a 33-year-old gentleman with a history of shoulder dislocation who was stable and having no problems until he sustained a dislocation while lifting something out of a trash receptacle. This began a series of dislocations and it has gotten to the point that he is unstable at night when he is sleeping and with daily activities. I discussed treatment options with him. I recommend capsular plication and I discussed the possibility of biceps tenodesis depending on the intraoperative findings. He has an MRI scheduled which I recommend he get prior to surgery. I discussed the risks, benefits and alternatives of surgery with him including, but not limited to, the risk of infection, stiffness, further dislocations, need for further surgery, nerve injury. He expressed understanding and we will proceed forward accordingly. This was a work injury and I recommend he abstain from right-handed work. Postoperatively he will abstain from right-handed work for at least 3 months. Coding Level of Care Code Est Pt Level 4 (90266) Diagnoses Instability of right shoulder joint M25.311
== END 2023-11-25 14:27 | disposition home or self-care (01) ==
PROVIDERS: PCP Internal Medicine; Visit Provider Orthopaedic Surgery
DX: M25.311 Other instability, right shoulder (principal)
CPT/HCPCS: 99214

== ENCOUNTER → 2023-11-25 13:24 | Outpatient (BNVA) | payer OTHER, SELFPAY | PROVIDERS: PCP Internal Medicine; Visit Provider Orthopaedic Surgery | DX: M25.311 Other instability, right shoulder (principal) | CPT/HCPCS: 99212 ==

== ENCOUNTER 2023-11-26 19:23 | Outpatient (REF) | payer OTHER, SELFPAY ==
--- NOTE | ~2023-11-26 | MR_ITS ---
EXAMINATION: MR SHOULDER WITHOUT CONTRAST, RIGHT CLINICAL INFORMATION: Right shoulder pain and swelling. Instability. COMPARISON: Right shoulder radiographs dated 11/05/2023 and MRI dated 01/10/2022. TECHNIQUE: MRI of the shoulder without contrast was performed on a high-field scanner. FINDINGS: ROTATOR CUFF: Moderate supraspinatus and infraspinous tendinosis, increased when compared to the prior examination. Bursal surface fraying/partial tearing of the junctional fibers measuring up to 1.4 cm in ML dimension, new when compared to the prior examination. At the posterior infraspinatus tendon, there is irregular articular surface partial tearing measuring 1.9 x 2.2 cm (AP x ML), new/increased when compared to the prior examination. Mild distal subscapularis tendinosis, slightly increased. No muscle atrophy or fatty infiltration. BICEPS: Intact. CORACOACROMIAL ARCH: The undersurface of the acromion is flat with no subacromial spur. Mild acromioclavicular osteoarthritis. Resolution of previously seen edema. LABRUM/CAPSULE: Redemonstration of somewhat linear fluid signal within the undersurface of the anterior and anteroinferior labrum, likely representing an unchanged nondisplaced undersurface tear. Focal fluid signal within the undersurface of the superior labrum, new when compared to the prior examination and concerning for a nondisplaced undersurface tear. Intact inferior joint capsule. GLENOHUMERAL JOINT/MARROW: Intact articular cartilage. No acute osseous injury. Mild degenerative cystic change within the greater tuberosity. Trace joint effusion. MR/MR shoulder RT wo con IMPRESSION: 1. Moderate supraspinatus and infraspinatus tendinosis, increased when compared to the prior examination. Bursal surface fraying/partial tearing of the junctional fibers measuring 1.4 cm in ML dimension, new when compared to the prior examination. Irregular articular surface partial tearing of the posterior infraspinatus tendon measuring 1.9 x 2.2 cm (AP x ML), new/increased when compared to the prior examination. Mild distal subscapularis tendinosis, slightly increased. 2. Mild acromioclavicular osteoarthritis with interval resolution of the previously seen marrow edema. 3. Probable nondisplaced undersurface tear of the anterior and anteroinferior labrum, unchanged. Probable nondisplaced undersurface tear of the superior labrum, new when compared to the prior examination. 4. Trace glenohumeral joint effusion. Electronically signed by: Gopal Dey MD 12/02/2023 07:18 AM EDT
== END 2023-11-26 19:24 | disposition home or self-care (01) ==
LOC: HO.MRI 19:23
PROVIDERS: PCP Internal Medicine; Visit Provider Internal Medicine
DX: M25.311 Other instability, right shoulder (principal)
CPT/HCPCS: 73221

== ENCOUNTER 2023-12-16 12:10 | Outpatient (REF) | payer BC, SELFPAY ==
[2023-12-16 14:12] LABS: Amphetamine Screen Urine Not Detected (Not Detect); Barbiturates, Urine Not Detected (Not Detect); Benzodiazepines Screen Urine Not Detected (Not Detect); Buprenorphine Scr Not Detected (Not Detect); Cannabinoid Screen Urine Not Detected (Not Detect); Cocaine Screen Urine Not Detected (Not Detect); Fentanyl, urine Not Detected (Not Detect); Methadone Screen, Urine Not Detected (Not Detect); Opiate Screen Urine Not Detected (Not Detect); Oxycodone Screen Urine Not Detected (Not Detect); Phencyclidine Screen Urine Not Detected (Not Detect)
== END 2023-12-16 12:11 | disposition home or self-care (01) ==
LOC: HO.LAB 12:10
PROVIDERS: PCP Internal Medicine; Visit Provider Internal Medicine
DX: Z13.89 Encounter for screening for other disorder (principal)
CPT/HCPCS: 80307

== ENCOUNTER 2023-12-17 10:34 | Day surgery (SDC) | payer OTHER, SELFPAY ==
--- NOTE | 2023-12-17 10:07 | HO.ANESPROP2 ---
PMF Active Problems Active Problems: All Active Problems Lateral epicondylitis of left elbow (Acute ~09/07/22) Labral tear of shoulder (Acute) Instability of right shoulder joint (Acute) Past Medical History Medical History Marijuana smoker Psoriasis Surgical History Surgical History History of ankle surgery [place] teeth extracted History of Problems with Anesthesia: No Social History Social History Are you a primary healthcare corporate account director to a significant other at home: No Do you presently have visiting nurse or other home services: No Alcohol intake: never Patient Tobacco Use Status: Former Tobacco user Tobacco use type: Cigarette Years Smoked: 8 Substance Use Type: Marijuana Current occupational status: employed Current occupation: instructor [employer] Meds Allergies Allergy/AdvReac Type Severity Reaction Status Date / Time No Known Allergies Allergy Verified 12/17/23 10:52 Home Medications ?Medication ?Instructions ?Recorded ?Confirmed ?Last Taken ?Type secukinumab 150 mg/mL subcutaneous 300 mg subcut DIRECTED 03/14/22 12/17/23 Unknown History pen injector (Cosentyx Pen 300 mg/2 Pens () Exam Airway Mallampati Class: II TM Dist: >3cm Neck ROM: Full Loose/Missing/Broken Teeth: No Heart: RRR Lungs: CTA Assessment and Plan Assessment Anesthesia Assessment: Anesthesia Plan Discussed and Chart Reviewed Final Anesthetic Review History of Problems with Anesthesia: No NPO: Yes ASA Class: II Final Preanesthetic Review: Meds/Allgs Chart Reviewed, Consent Obtained/Reviewed and Anes Risks/Benef Reviewed Patient Risk: Low Procedure Risk: Low Anesthetic Plan Anesthetic Plan: GA Disposition: Standard PACU
[2023-12-17 11:08] VITALS: BP 141/85; PULSE 63; RESP 16; TEMP 37.2; O2SAT 97; BMI 32.8
[2023-12-17] MEDS: Lactated Ringers 1,000 ML 80 ML IVCONT (11:42)
--- NOTE | 2023-12-17 13:13 | MHC.SHP ---
Pre-Procedural Eval Section A - 24 Hr Update-Section A only Date of Service: 12/17/23 The patient is an INPATIENT: No Changes since office visit: No Cold of Flu in the past 2 weeks, No New Medical Problems, No Changes in Medication and No Patient answered all questions The patient has been examined within 24 hours of the surgical procedure. The History & Physical has been completed within 30 days and I have reviewed it.: Yes Section B - Complete if H&P > 30 days Chief Complaint: Other instability, right shoulder Allergies: Allergies Allergy/AdvReac Type Severity Reaction Status Date / Time No Known Allergies Allergy Verified 12/17/23 10:52 Plan I have reviewed the history and physical and performed a pertinent physical examination on my patient. No changes have occurred unless specified. Time Spent With Patient Time: Total time managing care of this patient today ____ minutes.
--- NOTE | 2023-12-17 15:13 | P.BOP_ITS ---
Brief Operative Note Date of Service: 12/17/23 Pre-op diagnosis: right shoulder instability Post-op diagnosis: same Procedure: Right shoulder capsular plication Implants: Jeronimo and Nephew microraptor x 3 Surgeon: Dagoberto Salinas MD Anesthesia: GETA and regional Was an Metal Container Maker used for this Procedure?: No Estimated blood loss (mL): 20 IV fluids (mL): 1,000 Pathology: none sent Condition: stable Disposition: PACU
[2023-12-17 15:17] VITALS: BP 127/70; PULSE 65; RESP 16; TEMP 36.5; O2SAT 99
[2023-12-17 15:22] VITALS: BP 128/67; PULSE 60; RESP 16; O2SAT 95
[2023-12-17 15:27] VITALS: BP 130/76; PULSE 74; RESP 16; O2SAT 96
[2023-12-17 15:32] VITALS: BP 130/82; PULSE 73; RESP 16; O2SAT 96
[2023-12-17 15:47] VITALS: BP 132/80; PULSE 61; RESP 16; TEMP 36.5; O2SAT 96
--- NOTE | 2023-12-31 07:12 | W.PM.OPN ---
Operative Note Operative Note Date of Service: 12/17/23 Narrative: Date of Service: 12/17/23 Pre-op diagnosis: right shoulder instability Post-op diagnosis: same Procedure: Right shoulder capsular plication Implants: Jeronimo and Nephew microraptor x 3 Surgeon: Dagoberto Salinas MD Anesthesia: GETA and regional Was an Co Supervisor [employer]ounds [employer] Landscape used for this Procedure?: No Estimated blood loss (mL): 20 IV fluids (mL): 1,000 Pathology: none sent Condition: stable Disposition: PACU Procedure in detail: Patient was brought to the operating room and placed the the beach chair position. All bony prominences were well padded and the limb was prepped and draped in standard sterile fashion. A time out was called to identify proper site, proper procedure and proper surgeon. IV antibiotics per weight were administered. I began by making a posterolateral stab incision with a 15 blade. A blunt trochar was placed into the glenohumeral joint and I insufflated the joint with saline and a 30 degree arthroscope was placed. I established an outside- in anterior portal just superior to the subscapularis. I then began my inspection of the glenohumeral joint. There was min G 1 cartilage changes of the henrry-inferior glenoid. The subscapularis was intact and there was no under-surface RTC tearing. There was mild fraying of the biceps with associated mild degenerative tearing of the labrum superiorly. There was a anteroinferior labral partial detachment and a + drive-through. I then debrided the anterior glenoid and passed a suture through the henrry-inferior capsule and labrum at the 5 o'clock position. I placed a 2.7 mm micro-raptor at the anterior glenoid rim and tightened the henrry-inferior capsule and labrum creating a bumper effect. I then repeated this process at 4 and 3 o'clock positions. I was satisfied with the plication and the labral repair. There was no longer a + drive though. I then removed all instrumentation and took my final pictures. Portals were closed with nylon. Patient was placed in an abduction sling, extubated and brought to the recovery room in stable condition. There were no known complications.
== END 2023-12-17 16:00 | disposition home or self-care (01) ==
PROVIDERS: PCP Internal Medicine; Visit Provider Orthopaedic Surgery
PROC: (CPT 29805; principal; 2023-12-17 12:40)
DX: S43.491A Other sprain of right shoulder joint, initial encounter (principal); M75.81 Other shoulder lesions, right shoulder; M25.311 Other instability, right shoulder; X50.0XXA Overexertion from strenuous movement or load, initial encounter; Y93.9 Activity, unspecified; Y92.69 Other specified industrial and construction area as the place of occurrence of the external cause; Y99.0 Civilian activity done for income or pay; L40.9 Psoriasis, unspecified; Z98.890 Other specified postprocedural states; Z87.891 Personal history of nicotine dependence; Z79.899 Other long term (current) drug therapy
CPT/HCPCS: 29806; C1713; J0131; J0171; J0665; J0690; J1100; J2250; J2704; J2710; J3010

== ENCOUNTER → 2023-12-17 10:34 | Outpatient (BNV) | payer OTHER, SELFPAY | PROVIDERS: PCP Internal Medicine; Visit Provider Orthopaedic Surgery | DX: M25.311 Other instability, right shoulder (principal) | CPT/HCPCS: 29806 ==

== ENCOUNTER 2023-12-26 13:12 | Outpatient (AMB) | payer OTHER, SELFPAY ==
--- NOTE | 2023-12-26 13:20 | MHC.OFFVIS ---
Intake Visit Reasons: PO RT Shoulder capsular plic 12/17/23 NE Intake Note: Korin is a 33 year old male who presents today for a post op appointment s/p RT Shoulder capsular plic 12/17/23 NE. Patient reports he is doing well, with mild pain. Allergies No Known Allergies Allergy (Verified 12/17/23 10:52) HPI HPI PO RT Shoulder capsular plic 12/17/23 NE: Details: 33-year-old male who presents in the office today 9 days status post right shoulder capsular plication, which was performed on 12/17/[address] Salinas. While in the office today, He was presented in a sling. His pain is managed and he has been doing well postoperatively with no complaints. [facility] Medical History Marijuana smoker Psoriasis Surgical History History of ankle surgery [place] teeth extracted Social History Are you a primary school child care attendant to a significant other at home: No Do you presently have visiting nurse or other home services: No Alcohol intake: never Patient Tobacco Use Status: Former Tobacco user Tobacco use type: Cigarette Years Smoked: 8 Substance Use Type: Marijuana Current occupational status: employed Current occupation: instructor [employer] Review of Systems Const All systems reviewed & are unremarkable except as noted in HPI and below Physical Exam Const General: cooperative, healthy appearing and no acute distress Resp Effort & Inspection: normal respiratory effort and able to speak in complete sentences Cardio Rate: regular rate Peripheral pulses: Peripheral pulses 2+ throughout GI Palpation (GI): Soft to palpation Skin Lesions: no lesions Rashes: no rashes Extrem Other: Right shoulder: Incision sites are clean, dry, and intact. Sutures are intact. No surrounding erythema or drainage. No signs of infection. Forward flexion and abduction to 45 degrees. External rotation to 0 degrees. NVI. Assessment & Plan Assessment & Plan (1) Instability of right shoulder joint: Code(s): M25.311 - Other instability, right shoulder Category: Medical Plan Mr. Langley is a 33 -year-old male who presents in the office today 9 days status post right shoulder capsular plication, which was performed on 12/17/[address] Salinas. While in the office today, He was presented in a sling. His pain is managed and he has been doing well postoperatively with no complaints. Sutures were removed, steri-strips were applied. He will remain in the sling for 6 weeks post-op. An order was placed today for the patient to attend physical therapy and he should start as soon as possible. Follow up will be in 4 weeks with Doctor Salinas, or sooner if needed. Orders: Orders PT Evaluation and Treatment 12/26/23 M25.311 - Other instability, right shoulder Patient Instructions: Scribed by Angelique Sweet medical billing associate, for Marisa Beauchamp PA-C on 12/26/23 at 01:30 pm EST. Corrections by Yudi Arias medical billing associate, for Marisa Beauchamp PA-C on 12/26/2023 at 1:39 pm, EST.? Coding Level of Care Code Global (14272) Diagnoses Instability of right shoulder joint M25.311
== END 2023-12-26 13:54 | disposition home or self-care (01) ==
PROVIDERS: PCP Internal Medicine; Visit Provider Physician Assistant
DX: M25.311 Other instability, right shoulder (principal)
CPT/HCPCS: 99024

== ENCOUNTER → 2023-12-26 13:12 | Outpatient (BNVA) | payer OTHER, SELFPAY | PROVIDERS: PCP Internal Medicine; Visit Provider Physician Assistant | DX: Z47.89 Encounter for other orthopedic aftercare (principal) | CPT/HCPCS: 99212 ==

== ENCOUNTER 2024-02-13 14:21 | Outpatient (AMB) | payer OTHER, BC, SELFPAY ==
--- NOTE | 2024-02-13 14:25 | A.OFFVIS_ITS ---
Intake Visit Reasons: PO RT Shoulder capsular plic 12/17/23 NE Intake Note: Korin is a 33 year old male who presents today for a post op appointment s/p right shoulder capsular plic 12/17/23 NE. Patient reports he is feeling mild pain in the morning when he wakes up. Patient is going to start PT tomorrow. Allergies No Known Allergies Allergy (Verified 12/17/23 10:52) HPI HPI PO RT Shoulder capsular plic 12/17/23 NE: Details: 33-year-old male who presents in the office today 8 weeks status post right shoulder plication, which was performed on 12/17/[address] Salinas. I last saw the patient in the office on 12/26/23, when he was recommended to remain in the sling for 6 weeks post-op. He was referred to physical therapy. While in the office today, the patient reports experiencing mild pain when he wakes up in the morning. He will be attending his first physical therapy session on 02/14/2024. [facility] Medical History Marijuana smoker Psoriasis Surgical History History of ankle surgery [place] teeth extracted Social History Are you a primary child care development specialist to a significant other at home: No Do you presently have visiting nurse or other home services: No Alcohol intake: never Patient Tobacco Use Status: Former Tobacco user Tobacco use type: Cigarette Years Smoked: 8 Substance Use Type: Marijuana Current occupational status: employed Current occupation: instructor [employer] Review of Systems Const All systems reviewed & are unremarkable except as noted in HPI and below Physical Exam Const General: cooperative, healthy appearing and no acute distress Resp Effort & Inspection: normal respiratory effort and able to speak in complete sentences Cardio Rate: regular rate Peripheral pulses: Peripheral pulses 2+ throughout GI Palpation (GI): Soft to palpation Skin Lesions: no lesions Rashes: no rashes Extrem Other: Right shoulder: Able to reach end range of motion with forward flexion, abduction, and external rotation. Prior incisions are well approximated and healed. NVI. Assessment & Plan Assessment & Plan (1) Instability of right shoulder joint: Code(s): M25.311 - Other instability, right shoulder Category: Medical Plan Mr. Rick is a 33-year-old male who presents in the office today 8 weeks status post right shoulder plication, which was performed on 12/17/[address] Salinas. I last saw the patient in the office on 12/26/23, when he was recommended to remain in the sling for 6 weeks post-op. He was referred to physical therapy. While in the office today, the patient reports experiencing mild pain when he wakes up in the morning. He will be attending his first physical therapy session on 02/14/2024. The patient has his first physical therapy session scheduled for 02/14/24. I am a little concerned about the delay between the surgery and his first physical therapy appointment. However, the patient is making significant progress in his range of motion independently on his own. He can discontinue the use of sling at this time. Follow-up will be with Dr. Salinas in 6 weeks, or sooner if needed. Patient Instructions: Scribed by Angelique Sweet medical director of hospice, for Marisa Beauchamp PA-C on 02/13/24 at 3 pm EST. Coding Level of Care Code Global (53334) Diagnoses Instability of right shoulder joint M25.311
== END 2024-02-13 14:49 | disposition home or self-care (01) ==
LOC: HO.HOS 14:21
PROVIDERS: PCP Internal Medicine; Visit Provider Physician Assistant
DX: M25.311 Other instability, right shoulder (principal)
CPT/HCPCS: 99024

== ENCOUNTER → 2024-02-13 14:21 | Outpatient (BNVA) | payer OTHER, BC, SELFPAY | PROVIDERS: PCP Internal Medicine; Visit Provider Physician Assistant | DX: Z47.89 Encounter for other orthopedic aftercare (principal) | CPT/HCPCS: 99212 ==

== ENCOUNTER 2024-03-26 13:15 | Outpatient (AMB) | payer OTHER, BC, SELFPAY ==
--- NOTE | 2024-03-26 13:36 | MHC.OFFVIS ---
Intake Visit Reasons: PO RT Shoulder capsular plic 12/17/23 NE Intake Note: Korin is a 33 year old male who presents today for a post op appointment s/p right shoulder capsular plication 12/17/23 NE. Patient had delay between surgery and 1st PT appt. Allergies No Known Allergies Allergy (Verified 12/17/23 10:52) HPI HPI PO RT Shoulder capsular plic 12/17/23 NE: Details: Korin is a 33 year old male who presents today for a post op appointment s/p right shoulder capsular plication 12/17/23 NE. Patient had delay between surgery and 1st PT appt. He states he is doing pretty well. He has occasional pain with reaching in an abducted and forward flexed position. He has had no further dislocations and overall feels well. He thinks physical therapy is helping him. 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 Portals are clean dry and intact. Assessment & Plan Assessment & Plan (1) Instability of right shoulder joint: Code(s): M25.311 - Other instability, right shoulder Category: Medical Plan: Status post capsular plication of the right shoulder doing well. I discussed this with him. He will continue his physical therapy exercises and he will follow up in 3 months. Avoid overhead lifting or hyper abduction activities. Coding Level of Care Code Global (43266) Diagnoses Instability of right shoulder joint M25.311
== END 2024-03-26 16:00 | disposition home or self-care (01) ==
PROVIDERS: PCP Internal Medicine; Visit Provider Orthopaedic Surgery
DX: M25.311 Other instability, right shoulder (principal)
CPT/HCPCS: 99213

== ENCOUNTER → 2024-03-26 13:15 | Outpatient (BNVA) | payer OTHER, BC, SELFPAY | PROVIDERS: PCP Internal Medicine; Visit Provider Orthopaedic Surgery | DX: M25.311 Other instability, right shoulder (principal) | CPT/HCPCS: 99212 ==

== ENCOUNTER 2024-04-03 02:04 | Emergency (ER) | payer BC, SELFPAY ==
[2024-04-03 02:05] VITALS: BP 134/104; PULSE 62; RESP 20; TEMP 36.6; O2SAT 98; BMI 34.4
[2024-04-03 02:35] LABS: MANUAL DIFF FLAG NO
[2024-04-03] MEDS: Ondansetron ODT 4 MG TAB.RAPDIS TRANSLINGU (02:38)
[2024-04-03 02:41] LABS: Basophils Absolute Auto 0.1 X10*3/uL (0.0-0.2); Basophils Percent Auto 0.4 % (0-2); Eosinophils Absolute Auto 0.1 X10*3/uL (0.0-0.4); Eosinophils Percent Auto 0.4 % (0-4); Hematocrit 45.7 % (42.0-52.0); Hemoglobin 16.2 g/dl (14.0-18.0); Imm Gran Abs Auto 0.16 X10*3/uL (0.00-0.03); Imm Gran Pct Auto 0.8 % (0.0-0.4); Mean Corpuscular HGB Conc 35.4 g/dl (31.0-36.0); Mean Corpuscular Hemoglobin 29.8 pg (27.0-33.0); Mean Platelet Volume 10.6 fL (9.4-12.4); Monocytes Absolute Auto 0.8 X10*3/uL (0.1-1.2); Monocytes Percent Auto 4.3 % (2-11); Neutrophils Percent Auto 89.1 % (45-73); Platelet Count 235 X10*3/uL (160-400); Red Blood Count 5.44 X10*6/uL (4.60-5.80); Red Cell Distribution Width 12.2 % (11.0-16.0); White Blood Count 19.1 X10*3/uL (4.8-10.8)
[2024-04-03 02:58] LABS: Alanine Aminotransferase 18 U/L (0-40); Anion Gap 19 (12-20); Aspartate Amino Transferase 20 U/L (5-37); Bilirubin Total 1.1 mg/dL (0.0-1.0); Blood Urea Nitrogen 14 mg/dL (9-16); Calcium 9.6 mg/dL (8.4-10.2); Carbon Dioxide 19 mmol/L (22-29); Chloride 104 mmol/L (96-108); Creatinine Clr Calc Pharmacy 119.9; Estimated Glomerular Filt Rate > 60; Glucose Random 168 mg/dL (60-115); Sodium 138 mmol/L (135-145); Total Protein 8.3 g/dL (6.5-8.0)
[2024-04-03 03:08] LABS: Alkaline Phosphatase 57 U/L (39-117)
== END 2024-04-03 04:53 | disposition left against medical advice (07) ==
PROVIDERS: Emergency Provider Emergency Medicine; PCP Internal Medicine
DX: R11.10 Vomiting, unspecified (principal); Z79.899 Other long term (current) drug therapy
CPT/HCPCS: 36415; 80053; 85025; 99281

== ENCOUNTER 2024-04-04 05:34 | Emergency (ER) | payer BC, SELFPAY ==
[2024-04-04] VITALS (7 sets, daily range): BP systolic 131–144; BP diastolic 68–85; PULSE 52–61; RESP 14–20; TEMP 36.4–36.7; O2SAT 98–99; BMI 33.5
--- NOTE | ~2024-04-04 | CT_ITS ---
CLINICAL HISTORY: abd pain, unable to tolerate PO CT abdomen and pelvis with contrast Comparison: CT/[place] - CT ABDOMEN PELVIS W CON - 07/15/20 10:30 EDT Findings: Emphysematous changes within the left lower lobe. Small calcified granuloma within the left lower lobe. No consolidation or pleural effusion. Hypodense liver. No focal liver lesion. Remaining abdominal organs unremarkable. No calcified gallstones. Relative fluid distention of distal small bowel. Borderline thickening of the distal ileum. No bowel dilatation. Near-complete decompression of the colon. Pelvic contents unremarkable. Normal appendix. The bones are intact. IMPRESSION: 1. Relative fluid distention of distal small bowel and borderline thickening of the distal ileum raising the possibility of a mild degree of enteritis. 2. Fatty infiltration of the liver. This document has been electronically signed by: Sydni Melton MD on 04/04/2024 13:59:44
--- NOTE | 2024-04-04 09:04 | ED_ITS ---
HPI - General Adult General Chief complaint: Abdominal Pain Stated complaint: gastritis Time Seen by Provider: 04/04/24 09:02 Source: patient Mode of arrival: ambulatory Limitations: no limitations History of Present Illness ED Provider: Micheline Kemp PA-C HPI narrative: Patient is a 33 year old assigned male at with no reported medical history presenting to the emergency department today with abdominal pain, nausea, vomiting, and diarrhea. Patient states that he has had gastritis before and it may be that. Patient states that he has vomited at least 15 times and cannot keep anything down. Patient denies any dizziness, lightheadedness, fever, chills, blurry vision, double vision, loss of vision, chest pain, difficulty breathing, shortness of breath, back pain, night sweats, pain with urination, increased urinary frequency, increased urinary urgency, blood in his urine or stool, syncope or a near syncopal episode, recent trauma or falls, bowel incontinence, bladder incontinence, or any other complaints at this time. Onset (ago): day(s) (2) Location: abdomen Relieving factors: none Exacerbating factors: none Associated symptoms: nausea/vomiting Treatments prior to arrival: none Related Data Home Medications ?Medication ?Instructions ?Recorded ?Confirmed secukinumab 150 mg/mL subcutaneous 300 mg subcut DIRECTED 03/14/22 12/17/23 pen injector (Cosentyx Pen 300 mg/2 Pens () Previous Rx's ?Medication ?Instructions ?Recorded naproxen 500 mg tablet 500 mg PO BID PRN back pain #28 11/12/23 tabs oxycodone-acetaminophen 5 mg-325 1 tab PO Q4-6H PRN pain 7 days #42 12/17/23 mg tablet (Percocet) tabs ondansetron 4 mg disintegrating 4 mg PO Q8H 3 days #9 tabs 04/04/24 tablet Allergies Allergy/AdvReac Type Severity Reaction Status Date / Time No Known Allergies Allergy Verified 04/04/24 05:52 Review of Systems 2 Constitutional: Constitutional: Reports no additional constitutional complaints, Denies chills, Denies fever(s) and Denies night sweats Eyes: Eyes: Reports no additional eye complaints, Denies blurry vision, Denies change in vision, Denies diplopia, Denies eye discharge, Denies loss of vision and Denies eye pain ENT: Denies dizziness Cardiovascular: Cardiovascular: Reports no additional cardiovascular complaints, Denies chest pain, Denies lightheadedness, Denies Loss of Consciousness and Denies dyspnea Respiratory: Respiratory: Reports no additional respiratory complaints and Denies dyspnea Gastrointestinal: Gastrointestinal: Reports no additional gastrointestinal complaints, Reports abdominal pain, Denies melena, Denies hematochezia, Denies change in bowel habits, Denies change in stool character, Reports diarrhea, Reports nausea and Reports vomiting Genitourinary: Genitourinary: Reports no additional male genitourinary complaints, Denies hematuria, Denies oliguria, Denies difficulty urinating, Denies dysuria, Denies urinary frequency, Denies urinary hesitancy, Denies urinary incontinence and Denies urinary urgency Musculoskeletal: Musculoskeletal: Reports no additional musculoskeletal complaints, Denies numbness and Denies tingling Neurologic: Denies dizziness, Denies loss of vision, Denies numbness and Denies tingling Psychiatric: Psychiatric: Reports no additional psychiatric complaints Endocrine: Endocrine: Reports no additional endocrine complaints Hematologic/Lymphatic: Hematologic/Lymphatic: Reports no additional hematologic/lymphatic complaints Allergic/Immunologic: Allergic/Immunologic: Reports no additional allergic/immunologic complaints [facility] Past Medical History Attestation statement: The following information was validated with the patient. Source: old records reviewed and nursing notes reviewed Medical History Marijuana smoker Psoriasis Surgical History History of ankle surgery [place] teeth extracted Social History Social History Are you a primary clinical care leader to a significant other at home: No Do you presently have visiting nurse or other home services: No Alcohol intake: current Alcohol intake frequency: holidays/special occasions only Patient Tobacco Use Status: Former Tobacco user Tobacco use type: Cigarette Years Smoked: 8 Smoked in Last 30 Days: No Use of substances other than those prescribed or required for medical reasons: Yes Substance Use Type: Marijuana Advance Directives: No Advance Directives Information Provided: Yes Do you have a plan to hurt others: No Plan Current occupational status: employed Current occupation: instructor [employer] Physical Exam ED Vital Signs: Vital Signs - 24 hr 04/04/24 05:49 04/04/24 06:11 04/04/24 08:00 Temperature 97.5 F 97.9 F 98.1 F Pulse Rate 59 60 56 Respiratory Rate 16 16 14 Blood Pressure 142/85 H 144/82 H 142/70 H Pulse Oximetry 98 98 99 Oxygen Delivery Method Room Air Room Air Room Air 04/04/24 09:27 04/04/24 10:12 04/04/24 12:34 Temperature 98.1 F 98.1 F Pulse Rate 52 56 Respiratory Rate 20 14 14 Blood Pressure 142/76 H 135/68 Pulse Oximetry 99 98 Oxygen Delivery Method Room Air 04/04/24 14:15 Temperature 97.9 F Pulse Rate 61 Respiratory Rate 16 Blood Pressure 131/77 Pulse Oximetry 99 Oxygen Delivery Method Room Air BMI result Body Mass Index 33.5 Const General: cooperative, no acute distress, alert and awake Nutritional Appearance: well nourished Orientation/consciousness: patient oriented x3 Limitations: no limitations HENMT Head: Yes normal to inspection and Yes atraumatic Ears: hearing grossly normal bilaterally and external ears normal General nose exam: Normal external nose present, no nasal discharge noted and no epistaxis Face and sinus: Yes normal facial exam, No abrasion and No laceration Mouth: Normal oral and palatal mucosa present, no drooling and no muffled voice Eyes General: appearance normal, both eyes and all related structures Periorbital: periorbital findings normal Eyelids: Yes eyelids normal Conjunctivae: conjunctivae normal Pupils: Equal, round and reactive pupils present EOM: EOMs intact bilaterally Neck Neck: Yes normal visual inspection, Yes full ROM and Yes no lymphadenopathy Chest Chest palpation & inspection: normal inspection of the chest Resp Effort & Inspection: normal respiratory effort and able to speak in complete sentences GI Inspection: Yes normal to inspection Palpation (GI): Soft to palpation, not firm, nontender and no guarding Neuro General: patient oriented x3 and moves all extremities Cranial nerves: Yes Equal, round and reactive pupils present Cognition (Neuro): normal cognition Extrem General: Yes normal to inspection, Yes full ROM and Yes capillary refill normal Psych Appearance: grossly normal Mental Status: mental status grossly normal Affect: normal affect Attitude: cooperative Thought process: Normal thought process present Thought content: Normal thought content present Insight: Good insight present (Psych) Medications Administered Discontinued Medications Generic Name Dose Route Start Last Admin Trade Name Freq PRN Reason Stop Dose Admin Al Hydroxide/Mg Hydroxide 15 ml 04/04/24 09:04 04/04/24 09:27 Magnesium Hydrox/Alum Hydrox 30 Ml Oral.Susp PO 04/04/24 09:05 15 ml ONCE ONE Administration Sodium Chloride 1,000 mls @ 999 mls/hr 04/04/24 13:30 04/04/24 13:36 Ns IV 04/04/24 14:30 999 mls/hr .Q1H1M TERE Administration Iohexol 85 ml 04/04/24 10:31 04/04/24 10:31 Iohexol 350 Mg/Ml 100 Ml Infus..Btl IV 04/04/24 10:32 85 ml ONCE ONE Administration Morphine Sulfate 4 mg 04/04/24 09:04 04/04/24 09:27 Morphine Sulfate 4 Mg/Ml Cartridge IVPUSH 04/04/24 09:05 4 mg ONCE ONE Administration Protocol Ondansetron HCl 4 mg 04/04/24 09:04 04/04/24 09:27 Ondansetron Hcl 4 Mg/2 Ml Vial IVPUSH 04/04/24 09:05 4 mg ONCE ONE Administration Pantoprazole Sodium 40 mg 04/04/24 09:04 04/04/24 09:27 Pantoprazole Sodium 40 Mg/10 Ml Vial IVPUSH 04/04/24 09:05 40 mg ONCE ONE Administration Medical Decision Making Medical Decision Making [facility] Narrative: Patient is a 33 year old assigned male at with no reported medical history presenting to the emergency department today with abdominal pain, nausea, vomiting, and diarrhea. Patient's physical exam was as noted in the physical exam portion of this note. Patient's blood work showed an elevated WBC count of 13.8 but otherwise unremarkable. Patient's urine showed no acute process. Patient's CT abdomen/pelvis showed evidence of enteritis. I explained my physical exam findings as well as all test results to the patient. I answered all questions asked by the patient. Patient received IV fluids, morphine, protonix, and Zofran which, upon re-evaluation, he stated it helped his symptoms significantly. Patient able to tolerate PO while in the department. I stressed the importance of the patient taking his medication as directed (either prescribed or as the over the counter packaging recommends). I stressed the importance of the patient following up with his primary care provider. I stressed the importance of the patient returning to the emergency department immediately if his symptoms were to worsen or if he were to develop any dizziness, shortness of breath, difficulty breathing, chest pain, blurry vision, loss of vision, nausea, vomiting, abdominal pain, fever, chills, back pain, or any other complaints. Patient verbalized agreement and understanding with this treatment plan and discharge. Differential Diagnosis Differential Diagnoses: The differential diagnosis associated with the presentation includes Gastritis Enteritis Nausea Vomiting Admission/Observation Consideration of admission/observation: Escalation of care including admission/observation considered Patient would have been admitted to the hospital had his work up had any findings where hospital admission was appropriate and his clinical presentation warranted hospital admission. Lab Data [facility] Lab Attestation statement: I reviewed the patient's lab results. My interpretation of these results are in the [facility] Rationale portion of this note. 04/04/24 09:22 04/04/24 09:22 Labs: Lab Results 04/04/24 04/04/24 Range/Units 09:22 11:52 WBC 13.8 H (4.8-10.8) X10*3/uL RBC 5.43 (4.60-5.80) X10*6/uL Hgb 16.1 (14.0-18.0) g/dl Hct 45.4 (42.0-52.0) % MCV 83.6 (80.0-98.0) fL MCH 29.7 (27.0-33.0) pg MCHC 35.5 (31.0-36.0) g/dl RDW 12.5 (11.0-16.0) % Plt Count 253 (160-400) X10*3/uL MPV 10.8 (9.4-12.4) fL Immature Gran % (Auto) 0.6 H (0.0-0.4) % Neut % (Auto) 79.8 H (45-73) % Lymph % (Auto) 10.2 L (20-40) % [place] % (Auto) 9.1 (2-11) % Eos % (Auto) 0.1 (0-4) % Baso % (Auto) 0.2 (0-2) % Lymph # (Auto) 1.4 (1.2-4.9) X10*3/uL [place] # (Auto) 1.3 H (0.1-1.2) X10*3/uL Eos # (Auto) 0.0 (0.0-0.4) X10*3/uL Baso # (Auto) 0.0 (0.0-0.2) X10*3/uL Abs Immat Gran (auto) 0.08 H (0.00-0.03) X10*3/uL Absolute Neuts (auto) 11.0 H (2.0-8.3) x10*3/uL Absolute Nucleated RBC 0.000 (0.0-0.012) X10*3/uL Nucleated RBC % (auto) 0.0 (0.0-0.2) /100WBC Sodium 139 (135-145) mmol/L Potassium 3.6 (3.3-5.1) mmol/L Chloride 102 (96-108) mmol/L Carbon Dioxide 24 (22-29) mmol/L Anion Gap 17 (12-20) BUN 18 H (9-16) mg/dL Creatinine 1.14 (0.5-1.4) mg/dL Estim Creat Clear Calc 106.9 Estimated GFR > 60 Random Glucose 113 (60-115) mg/dL Calcium 9.7 (8.4-10.2) mg/dL Magnesium 2.1 (1.6-2.6) mg/dL Total Bilirubin 0.9 (0.0-1.0) mg/dL AST 22 (5-37) U/L ALT 20 (0-40) U/L Alkaline Phosphatase 50 (39-117) U/L Total Protein 8.2 H (6.5-8.0) g/dL Albumin 4.8 (3.5-5.0) g/dL Lipase 12 (8-78) U/L Urine Color Yellow Urine Appearance Clear Urine pH 6.0 (5.0-9.0) Ur Specific [place] >= 1.030 H (1.005-1.025) Urine Protein 30 (1+) H (Neg-Trace) mg/dL Urine Glucose (UA) Negative (Negative) mg/dL Urine Ketones 15 (Negative) mg/dL Urine Blood Trace H (Negative) Urine Nitrite Negative (Negative) Ur Leukocyte Esterase Negative (Negative) Urine RBC 0-2 (0-2) /HPF Urine WBC 0-5 (0-5) /HPF Ur Squamous Epith Cells 0-2 (0-2) /HPF Urine Bacteria None Seen (None Seen) Hyaline Casts 0-2 (0-2) /LPF Influenza Type A (PCR) NEGATIVE (Negative) Influenza Type B (PCR) NEGATIVE (Negative) RSV RNA Qual (PCR) NEGATIVE (Negative) SARS-CoV-2 RNA (RT-PCR) NEGATIVE (Negative) Independent Interpretation I performed an independent interpretation of an: CT Scan Interpretation: My interpretation is in agreement with the radiologist's impression of this imaging study. L CLINICAL HISTORY: abd pain, unable to tolerate PO CT abdomen and pelvis with contrast Comparison: CT/[place] - CT ABDOMEN PELVIS W CON - 07/15/20 10:30 EDT Findings: Emphysematous changes within the left lower lobe. Small calcified granuloma within the left lower lobe. No consolidation or pleural effusion. Hypodense liver. No focal liver lesion. Remaining abdominal organs unremarkable. No calcified gallstones. Relative fluid distention of distal small bowel. Borderline thickening of the distal ileum. No bowel dilatation. Near-complete decompression of the colon. Pelvic contents unremarkable. Normal appendix. The bones are intact. IMPRESSION: 1. Relative fluid distention of distal small bowel and borderline thickening of the distal ileum raising the possibility of a mild degree of enteritis. 2. Fatty infiltration of the liver. This document has been electronically signed by: Sydni Melton MD on 04/04/2024 13:59:44 Dictated By: Sydni Melton MD Signed By: Electronically signed by Sydni Melton MD 04/04/24 1401 Radiology Impression Discussion of test interpretation with radiology: I have reviewed the radiologist's reading. Critical Care Time Critical Care Time Critical Care Time: Yes Total Critical Care Time: 51 Attestation: I spent 51 minutes of Critical Care Time with this patient. This does not include time spent on separately reported billable procedures. Discharge Plan Discharge Clinical Impression: Enteritis Patient Disposition: Home, Self-Care Instructions: Acute Nausea and Vomiting (ED), Enteritis (ED) Additional Instructions: Your work up today was reassuring. Your CT scan showed evidence of enteritis (inflammation of the bowel). This will resolve on it's own. Follow up with your primary care provider. Return to the emergency department immediately if your symptoms worsen or if you develop any dizziness, shortness of breath, difficulty breathing, chest pain, blurry vision, loss of vision, nausea, vomiting, abdominal pain, fever, chills, back pain, or any other complaints. Prescriptions: New ondansetron 4 mg tablet,disintegrating 4 mg PO Q8H 3 Days Qty: 9 0RF No Action Cosentyx Pen (2 Pens) 150 mg/mL pen injector 300 mg subcut DIRECTED Rx Instructions: monthly oxycodone-acetaminophen [Percocet] 5-325 mg tablet 1 tab PO Q4-6H PRN (Reason: pain) 7 Days Qty: 42 0RF Rx Instructions: Partial Fill upon patient request. naproxen 500 mg tablet 500 mg PO BID PRN (Reason: back pain) Qty: 28 0RF Referrals: Brian House MD [Primary Care Provider] - Stand Alone Forms: Work/School Release Interventions: ED Discharge Assessment Last Done: 04/04/24 14:15 Discharge Date/Time: 04/04/24 14:17 Print Language: Tajik
[2024-04-04] MEDS: Morphine Sulfate 4 MG/ML CARTRIDGE IVPUSH (09:27)
[2024-04-04] MEDS: ondansetron HCL 4 MG/2 ML VIAL IVPUSH (09:27)
[2024-04-04] MEDS: Pantoprazole Sodium 40 MG/10 ML VIAL IVPUSH (09:27)
[2024-04-04] MEDS: Magnesium Hydrox/Alum Hydrox 30 ML ORAL.SUSP 15 ML PO (09:27)
[2024-04-04 09:38] LABS: MANUAL DIFF FLAG NO
[2024-04-04 09:56] LABS: Basophils Percent Auto 0.2 % (0-2); Eosinophils Percent Auto 0.1 % (0-4); Hematocrit 45.4 % (42.0-52.0); Hemoglobin 16.1 g/dl (14.0-18.0); Imm Gran Abs Auto 0.08 X10*3/uL (0.00-0.03); Imm Gran Pct Auto 0.6 % (0.0-0.4); Lymphocytes Absolute Auto 1.4 X10*3/uL (1.2-4.9); Lymphocytes Percent Auto 10.2 % (20-40); Mean Corpuscular HGB Conc 35.5 g/dl (31.0-36.0); Mean Corpuscular Hemoglobin 29.7 pg (27.0-33.0); Mean Corpuscular Volume 83.6 fL (80.0-98.0); Mean Platelet Volume 10.8 fL (9.4-12.4); Monocytes Absolute Auto 1.3 X10*3/uL (0.1-1.2); Monocytes Percent Auto 9.1 % (2-11); Neutrophils Percent Auto 79.8 % (45-73); Platelet Count 253 X10*3/uL (160-400); Red Blood Count 5.43 X10*6/uL (4.60-5.80); Red Cell Distribution Width 12.5 % (11.0-16.0); White Blood Count 13.8 X10*3/uL (4.8-10.8)
[2024-04-04 10:11] LABS: Alanine Aminotransferase 20 U/L (0-40); Albumin Level 4.8 g/dL (3.5-5.0); Alkaline Phosphatase 50 U/L (39-117); Anion Gap 17 (12-20); Aspartate Amino Transferase 22 U/L (5-37); Bilirubin Total 0.9 mg/dL (0.0-1.0); Blood Urea Nitrogen 18 mg/dL (9-16); Calcium 9.7 mg/dL (8.4-10.2); Carbon Dioxide 24 mmol/L (22-29); Chloride 102 mmol/L (96-108); Creatinine Clr Calc Pharmacy 106.9; Estimated Glomerular Filt Rate > 60; Glucose Random 113 mg/dL (60-115); Lipase 12 U/L (8-78); Magnesium 2.1 mg/dL (1.6-2.6); Potassium 3.6 mmol/L (3.3-5.1); Sodium 139 mmol/L (135-145); Total Protein 8.2 g/dL (6.5-8.0)
[2024-04-04 10:20] LABS: Influenza A PCR NEGATIVE (Negative); Influenza B PCR NEGATIVE (Negative); Resp Syncy Virus RNA Qual PCR NEGATIVE (Negative); SARS COV2 PCR INHOUSE NEGATIVE (Negative)
[2024-04-04] MEDS: iohexoL 350 MG/ML 100 ML INFUS..BTL 85 ML IV (10:31)
[2024-04-04 11:58] LABS: Appearance Urine Clear; Color Urine Yellow; Glucose Urine UA Negative (Negative); Leukocyte Esterase Urine Negative (Negative); Nitrite Urine Negative (Negative); Specific Gravity - Urine >= 1.030 (1.005-1.025); UMIC TRIGGER UACC YES; Urine Blood Trace (Negative); Urine Ketones 15 mg/dL (Negative); Urine Protein 30 (1+) mg/dL (Neg-Trace)
[2024-04-04 12:04] LABS: Bacteria Urine None Seen (None Seen); Hyaline Casts Urine 0-2 /LPF (0-2); RBC Urine 0-2 /HPF (0-2); Squamous Epithelial Cell Urine 0-2 /HPF (0-2); WBC Urine 0-5 /HPF (0-5)
--- NOTE | 2024-04-04 13:27 | MHC.EDTECH ---
pt ststed he wants IV fluids because he feels dehydrated, RN notified. pt keep asking for results of scan.
[2024-04-04] MEDS: 0.9 % Sodium Chloride 1,000 ML 999 ML IV (13:36)
== END 2024-04-04 14:17 | disposition home or self-care (01) ==
PROVIDERS: Physician Assistant Medical; Emergency Provider Emergency Medicine; PCP Internal Medicine
DX: K52.9 Noninfective gastroenteritis and colitis, unspecified (principal); R11.2 Nausea with vomiting, unspecified; F12.90 Cannabis use, unspecified, uncomplicated; Z87.891 Personal history of nicotine dependence; Z03.818 Encounter for observation for suspected exposure to other biological agents ruled out
CPT/HCPCS: 0241U; 74177; 80053; 81001; 83690; 83735; 85025; 96374; 96375; 99284; J2270; J2405; J2470; Q9967

== ENCOUNTER → 2024-04-04 09:04 | Outpatient (BNV) | payer BC, SELFPAY | PROVIDERS: Emergency Provider Emergency Medicine; PCP Internal Medicine; Visit Provider Radiology Diagnostic Radiology | DX: R10.9 Unspecified abdominal pain (principal) | CPT/HCPCS: 74177 ==

== ENCOUNTER 2024-04-05 03:47 | Emergency (ER) | payer BC, SELFPAY ==
[2024-04-05 03:55] VITALS: BP 174/86; PULSE 52; RESP 16; TEMP 36.8; O2SAT 97; BMI 33.7
--- NOTE | 2024-04-05 05:17 | ECG_ITS ---
Test Reason : ABD PAIN Blood Pressure : / mmHG Vent. Rate : 055 BPM Atrial Rate : 055 BPM P-R Int : 152 ms QRS Dur : 088 ms QT Int : 434 ms P-R-T Axes : 235 023 039 degrees QTc Int : 415 ms Unusual P axis, possible ectopic atrial bradycardia Minimal voltage criteria for LVH, may be normal variant ( Sokolow-Mckeon ) Abnormal ECG When compared with ECG of 17-SEP-2019 16:27, No significant changes seen Referred By: Yvette Youssef Electronically Signed By:NAGA CHU MD
--- NOTE | 2024-04-05 05:19 | ED.ABDPAIN ---
HPI - Abdominal Pain General Chief Complaint: Abdominal Pain Stated Complaint: gastritis Time Seen by Provider: 04/05/24 05:19 Source: patient Mode of arrival: ambulatory Limitations: no limitations History of Present Illness ED Provider: Dr. Yvette Youssef HPI narrative: Patient comes to emergency room complaining of recurrent symptoms including nausea vomiting and epigastric burning sensation. Patient was seen here yesterday, states that initially he was feeling well, got home and now he is having nausea vomiting and epigastric burning again. Patient denies fever chills. Patient states that his 2 kids have the same symptoms. Patient states that he has been taking sublingual Zofran at home without any relief Related Data Home Medications ?Medication ?Instructions ?Recorded ?Confirmed secukinumab 150 mg/mL subcutaneous 300 mg subcut DIRECTED 03/14/22 12/17/23 pen injector (Cosentyx Pen 300 mg/2 Pens () Previous Rx's ?Medication ?Instructions ?Recorded naproxen 500 mg tablet 500 mg PO BID PRN back pain #28 11/12/23 tabs oxycodone-acetaminophen 5 mg-325 1 tab PO Q4-6H PRN pain 7 days #42 12/17/23 mg tablet (Percocet) tabs ondansetron 4 mg disintegrating 4 mg PO Q8H 3 days #9 tabs 04/04/24 tablet calcium carbonate (Tums) 200 mg PO QID PRN dyspepsia #30 04/05/24 tabs omeprazole 40 mg capsule,delayed 40 mg PO DAILY #20 caps 04/05/24 release prochlorperazine maleate 5 mg 5 mg PO TID PRN nausea and 04/05/24 tablet (Compazine) vomiting #14 tabs Allergies Allergy/AdvReac Type Severity Reaction Status Date / Time No Known Allergies Allergy Verified 04/05/24 03:56 Review of Systems Review of Systems Constitutional : No Weight loss, No Fever, No Chills, No Night Sweats, No Fatigue, No Malaise ENT/Mouth : No Hearing loss, No Ear Pain, No Nasal Congestion, No Sinus Pain, No Hoarseness, No sore throat, No Rhinorrhea, No Swallowing Difficulty Eyes: No Eye Pain, No Swelling, No Redness, No Foreign Body, No Discharge, No Vision Changes Cardiovascular : No Chest Pain, No SOB, No Dyspnea on Exertion, No Orthopnea, No Edema, No Palpitations Respiratory : No Cough, No Sputum, No Wheezing, No Smoke Exposure, No Dyspnea Gastrointestinal : Complaining of nausea vomiting and 1 episode of diarrhea, much better than yesterday per patient. No Constipation, complaining of epigastric burning sensation Genitourinary : no irregular bleeding, No Dysuria, No Urinary Frequency, No Hematuria, No Urinary Incontinence, No Urgency, No Flank Pain, No Urinary Flow Changes, No Hesitancy Musculoskeletal : No joint pain, No Myalgias, No Joint Swelling Skin : No Skin Lesions, No rash Neuro : No Weakness, No Numbness, No Paresthesias, No Loss of Consciousness, No Dizziness, No Headache Psych : No Anxiety/Panic, No Depression, No SI/HI/AH/VH, No Social Issues, Heme/Lymph: No Bruising, No Bleeding,No Lymphadenopathy Endocrine : No Polyuria, No Polydipsia, No Temperature Intolerance [facility] Past Medical History Medical History Marijuana smoker Psoriasis Surgical History History of ankle surgery [place] teeth extracted Social History Social History Are you a primary certified social workers in health care to a significant other at home: No Do you presently have visiting nurse or other home services: No Alcohol intake: current Alcohol intake frequency: holidays/special occasions only Patient Tobacco Use Status: Former Tobacco user Tobacco use type: Cigarette Years Smoked: 8 Smoked in Last 30 Days: No Use of substances other than those prescribed or required for medical reasons: No Substance Use Type: Marijuana Advance Directives: No Advance Directives Information Provided: Yes Do you have a plan to hurt others: No Plan Current occupational status: employed Current occupation: instructor [employer] Physical Exam ED Vital Signs: Vital Signs - 24 hr 04/05/24 03:55 04/05/24 05:31 04/05/24 06:19 Temperature 98.3 F 98.5 F 98.9 F Pulse Rate 52 51 54 Respiratory Rate 16 16 16 Blood Pressure 174/86 H 142/76 H 148/86 H Pulse Oximetry 97 98 97 Oxygen Delivery Method Room Air Room Air Room Air BMI result Body Mass Index 33.7 Const Other: Appearance: Alert. Oriented X3. No acute distress. Eyes: Pupils equal, round and reactive to light. ENT: Pharynx normal. Neck: Normal inspection. Neck supple. No lymph nodes noted. No crepitus CVS: Normal heart rate and rhythm. Pulses normal. Normal S1 and S2 Respiratory: No respiratory distress. Breath sounds normal. No Wheezing. No rales Abdomen: Soft and nontender. No rigidity. No distention. Skin: Skin warm and dry. Normal skin color. Normal skin turgor. Extremities: No lower extremity edema. No Lacerations. No Rash Neuro: Oriented X 3. No motor deficit. No sensory deficit. Moving all extremities. No slurred speech. CN 2 through 12 grossly intact Psych: calm, cooperative, normal affect Course Course Course Narrative: We will repeat patient's lab to ensure that patient has no electrolyte abnormalities from ongoing vomiting Patient receiving IV fluids, IV Protonix, IV Compazine, p.o. Maalox and viscous lidocaine Medical Decision Making Medical Decision Making [facility] Narrative: I reviewed patient's CT scan of the abdomen from yesterday: Relative fluid distention of distal small bowel and borderline thickening of the jejunum raising possibility of enteritis My interpretation of labs: No significant difference between yesterday's hematology and chemistry, no acute findings, normal LFTs, normal lipase, serology negative for influenza RSV COVID Patient received a GI cocktail consisting of viscous lidocaine and Maalox. Also patient received IV fluids, pantoprazole and Compazine. Patient states that he feels much better. I discussed with the patient that any time there is a viral illness, it will take a few days until he feels better. He may still have a few more episodes of vomiting and diarrhea at home. Patient instructed to take his medications if this happens. I discussed with the patient's signs and symptoms of when to return to the emergency room. Differential Diagnosis Differential Diagnoses: The differential diagnosis associated with the presentation includes (Enteritis, gastritis, peptic ulcer disease) Lab Data [facility] Lab Attestation statement: I reviewed the patient's lab results. 04/05/24 05:30 04/05/24 05:30 Labs: Lab Results 04/05/24 Range/Units 05:30 WBC 11.2 H (4.8-10.8) X10*3/uL RBC 5.29 (4.60-5.80) X10*6/uL Hgb 15.8 (14.0-18.0) g/dl Hct 44.1 (42.0-52.0) % MCV 83.4 (80.0-98.0) fL MCH 29.9 (27.0-33.0) pg MCHC 35.8 (31.0-36.0) g/dl RDW 12.3 (11.0-16.0) % Plt Count 217 (160-400) X10*3/uL MPV 10.2 (9.4-12.4) fL Immature Gran % (Auto) 0.9 H (0.0-0.4) % Neut % (Auto) 75.9 H (45-73) % Lymph % (Auto) 13.1 L (20-40) % Bullock % (Auto) 9.8 (2-11) % Eos % (Auto) 0.1 (0-4) % Baso % (Auto) 0.2 (0-2) % Lymph # (Auto) 1.5 (1.2-4.9) X10*3/uL Bullock # (Auto) 1.1 (0.1-1.2) X10*3/uL Eos # (Auto) 0.0 (0.0-0.4) X10*3/uL Baso # (Auto) 0.0 (0.0-0.2) X10*3/uL Abs Immat Gran (auto) 0.10 H (0.00-0.03) X10*3/uL Absolute Neuts (auto) 8.5 H (2.0-8.3) x10*3/uL Absolute Nucleated RBC 0.000 (0.0-0.012) X10*3/uL Nucleated RBC % (auto) 0.0 (0.0-0.2) /100WBC Sodium 138 (135-145) mmol/L Potassium 3.7 (3.3-5.1) mmol/L Chloride 104 (96-108) mmol/L Carbon Dioxide 25 (22-29) mmol/L Anion Gap 13 (12-20) BUN 16 (9-16) mg/dL Creatinine 0.99 (0.5-1.4) mg/dL Estim Creat Clear Calc 123.5 Estimated GFR > 60 Random Glucose 115 (60-115) mg/dL Calcium 9.3 (8.4-10.2) mg/dL Total Bilirubin 0.9 (0.0-1.0) mg/dL Direct Bilirubin 0.2 (0.0-0.5) mg/dL AST 73 H (5-37) U/L ALT 26 (0-40) U/L Alkaline Phosphatase 48 (39-117) U/L Total Protein 7.8 (6.5-8.0) g/dL Albumin 4.6 (3.5-5.0) g/dL Lipase 11 (8-78) U/L Medications Administered Discontinued Medications Generic Name Dose Route Start Last Admin Trade Name Freq PRN Reason Stop Dose Admin Al Hydroxide/Mg Hydroxide 30 ml 04/05/24 05:14 04/05/24 05:39 Magnesium Hydrox/Alum Hydrox 30 Ml Oral.Susp PO 04/05/24 05:15 30 ml ONCE ONE Administration Sodium Chloride 1,000 mls @ 999 mls/hr 04/05/24 05:14 04/05/24 05:39 Ns IVCONT 04/05/24 06:14 999 mls/hr .Q1H1M ONE Administration Lidocaine HCl 15 ml 04/05/24 05:14 04/05/24 05:39 Lidocaine Hcl Viscous 2 % 15 Ml Solution MUCOUS MEM 04/05/24 05:15 15 ml ONCE ONE Administration Pantoprazole Sodium 40 mg 04/05/24 05:14 04/05/24 05:39 Pantoprazole Sodium 40 Mg/10 Ml Vial IVPUSH 04/05/24 05:15 40 mg ONCE ONE Administration Prochlorperazine Edisylate 10 mg 04/05/24 05:14 04/05/24 05:39 Prochlorperazine Edisylate 10 Mg/2 Ml Vial IVPUSH 04/05/24 05:15 10 mg ONCE ONE Administration Critical Care Time Critical Care Time Critical Care Time: Yes Total Critical Care Time: 45 Attestation: I have personally provided critical care time. Time includes review of lab data, radiology results, discussion with consultants, and monitoring for potential decompensation. Intervention performed as documented. Discharge Plan Discharge Clinical Impression: Epigastric pain, Nausea & vomiting Patient Disposition: Home, Self-Care Instructions: Acute Abdominal Pain (ED), Abdominal Pain (ED) Additional Instructions: Please follow-up with your primary care physician tomorrow. If you have any worsening or new symptoms, please return to the emergency room or call 911 Prescriptions: New prochlorperazine maleate [Compazine] 5 mg tablet 5 mg PO TID PRN (Reason: nausea and vomiting) Qty: 14 0RF omeprazole 40 mg capsule,delayed release(DR/EC) 40 mg PO DAILY Qty: 20 0RF calcium carbonate [Tums] 200 mg calcium (500 mg) tablet,chewable 200 mg PO QID PRN (Reason: dyspepsia) Qty: 30 0RF No Action Cosentyx Pen (2 Pens) 150 mg/mL pen injector 300 mg subcut DIRECTED Rx Instructions: monthly oxycodone-acetaminophen [Percocet] 5-325 mg tablet 1 tab PO Q4-6H PRN (Reason: pain) 7 Days Qty: 42 0RF Rx Instructions: Partial Fill upon patient request. ondansetron 4 mg tablet,disintegrating 4 mg PO Q8H 3 Days Qty: 9 0RF naproxen 500 mg tablet 500 mg PO BID PRN (Reason: back pain) Qty: 28 0RF Print Language: Romanian
[2024-04-05 05:31] VITALS: BP 142/76; PULSE 51; RESP 16; TEMP 36.9; O2SAT 98
[2024-04-05] MEDS: 0.9 % Sodium Chloride 1,000 ML 999 ML IVCONT (05:39)
[2024-04-05] MEDS: Prochlorperazine Edisylate 10 MG/2 ML VIAL IVPUSH (05:39)
[2024-04-05] MEDS: Pantoprazole Sodium 40 MG/10 ML VIAL IVPUSH (05:39)
[2024-04-05] MEDS: Lidocaine HCl Viscous 2 % 15 ML SOLUTION MUCOUS MEM (05:39)
[2024-04-05] MEDS: Magnesium Hydrox/Alum Hydrox 30 ML ORAL.SUSP PO (05:39)
[2024-04-05 05:40] LABS: MANUAL DIFF FLAG NO
[2024-04-05 05:41] LABS: Basophils Percent Auto 0.2 % (0-2); Eosinophils Percent Auto 0.1 % (0-4); Hematocrit 44.1 % (42.0-52.0); Hemoglobin 15.8 g/dl (14.0-18.0); Imm Gran Pct Auto 0.9 % (0.0-0.4); Lymphocytes Absolute Auto 1.5 X10*3/uL (1.2-4.9); Lymphocytes Percent Auto 13.1 % (20-40); Mean Corpuscular HGB Conc 35.8 g/dl (31.0-36.0); Mean Corpuscular Hemoglobin 29.9 pg (27.0-33.0); Mean Corpuscular Volume 83.4 fL (80.0-98.0); Mean Platelet Volume 10.2 fL (9.4-12.4); Monocytes Absolute Auto 1.1 X10*3/uL (0.1-1.2); Monocytes Percent Auto 9.8 % (2-11); Neutrophils Absolute Auto 8.5 x10*3/uL (2.0-8.3); Neutrophils Percent Auto 75.9 % (45-73); Platelet Count 217 X10*3/uL (160-400); Red Blood Count 5.29 X10*6/uL (4.60-5.80); Red Cell Distribution Width 12.3 % (11.0-16.0); White Blood Count 11.2 X10*3/uL (4.8-10.8)
[2024-04-05 05:59] LABS: Alanine Aminotransferase 26 U/L (0-40); Albumin Level 4.6 g/dL (3.5-5.0); Alkaline Phosphatase 48 U/L (39-117); Anion Gap 13 (12-20); Aspartate Amino Transferase 73 U/L (5-37); Bilirubin Direct 0.2 mg/dL (0.0-0.5); Bilirubin Total 0.9 mg/dL (0.0-1.0); Blood Urea Nitrogen 16 mg/dL (9-16); Calcium 9.3 mg/dL (8.4-10.2); Carbon Dioxide 25 mmol/L (22-29); Chloride 104 mmol/L (96-108); Creatinine Clr Calc Pharmacy 123.5; Estimated Glomerular Filt Rate > 60; Glucose Random 115 mg/dL (60-115); Lipase 11 U/L (8-78); Potassium 3.7 mmol/L (3.3-5.1); Sodium 138 mmol/L (135-145); Total Protein 7.8 g/dL (6.5-8.0)
[2024-04-05 06:19] VITALS: BP 148/86; PULSE 54; RESP 16; TEMP 37.2; O2SAT 97
[2024-04-05 07:04] VITALS: BP 148/86; PULSE 54; RESP 16; TEMP 37.2; O2SAT 97
== END 2024-04-05 07:27 | disposition home or self-care (01) ==
PROVIDERS: Emergency Provider Emergency Medicine
DX: K29.70 Gastritis, unspecified, without bleeding (principal); R10.2 Pelvic and perineal pain; R11.2 Nausea with vomiting, unspecified; R00.1 Bradycardia, unspecified; Z79.899 Other long term (current) drug therapy
CPT/HCPCS: 36415; 80048; 80076; 83690; 85025; 93005; 96361; 96374; 96375; 99284; 99285; J0737; J2470

== ENCOUNTER → 2024-04-05 05:17 | Outpatient (BNV) | payer BC, SELFPAY | PROVIDERS: Emergency Provider Emergency Medicine; Visit Provider Internal Medicine Cardiovascular Disease | DX: R10.9 Unspecified abdominal pain (principal); R94.31 Abnormal electrocardiogram [ECG] [EKG] | CPT/HCPCS: 93010 ==

== ENCOUNTER 2024-04-10 13:58 | Outpatient (RCR) | payer OTHER, BC, SELFPAY ==
--- NOTE | 2024-02-14 13:49 | MHC.PT.EP ---
[facility] [place] Office [place] Office [place] Office [address] [phone] F: [phone] F: [phone] F: [phone] F: [phone] Physical Therapy Plan of Care Date of Evaluation: 02/14/24 Date of Surgery: 12/17/23 Diagnosis: Instability of R shoulder joint, s/p R shoulder capsular plication Assessment: Korin is a 33 year old male who is referred to PT for Instability of R shoulder joint, s/p R shoulder capsular plication . He is currently 8 weeks post op. Did not have any PT since the surgery. On PT examination he presented with TTP over R supraspinatus tendon and anterior shoulder joint line, no pain rest and 6/10 pain with over head shoulder movements, decreased R shoulder ROM, decreased R shoulder and scap strength and altered posture. He is independent with all ADLS but has pain with it and modifies using L UE. He works for [employer] and is currently out of work. He enjoys exercising in the gym but has not been able to do it. He would benefit from skilled PT to address the aforementioned impairments and improve tolerance to functional activities. Frequency and Duration: The patient will be seen 2/week for 8 weeks Short Term Goals: 1. Pt will have 50% decrease in pain with over head shoulder movements in 2 weeks. 2. Pt will have all shoulder ROM WNL and without pain which will enable him to perform self care activities like showering, dressing without pain in 4 weeks. [employer]re [employer] Drier Goals: 1. Pt will demonstrate an increase in muscle strength by 1 grade which will enable him to perform all IADLS and work related activities in 6 weeks. 2. Pt will be independent with HEP and return to PLOF in 8 weeks. Treatment Plan: Modalities to reduce pain, spasms and effusion. Manual therapy to restore motion and function. Therapeutic exercise to improve strength and flexibility. Neuromuscular re-education for posture and balance. Therapeutic activities to return to functional activities of daily living. Electronically signed by: Mimi Vaca PT DPT Please sign and return to therapist. Thank you for your referral.
--- NOTE | 2024-05-12 09:25 | MHC.PT.DC ---
[facility] [place] Office [place] Office [place] [facility] [address] Cassidy Burroughs [address] [phone] F: [phone] F: [phone] F: [phone] F: [phone] Physical Therapy Discharge Report Diagnosis: Instability of R shoulder joint, s/p R shoulder capsular plication Date of Surgery: 12/17/23 Date of Evaluation: 02/14/24 Date of Discharge: 05/12/24 Treatments to Date: 11 Cancellations to Date: 0 No Shows to Date: 0 Discharge Status: Achieved Goals Improved Function Independent with HEP Discharge Summary: Korin completed 11 PT visits and has made significant improvements with PT. He has achieved all goals set for him. He is independent with all HEP as well. He is therefore being d/c from PT. Korin was in agreement with the plan. Electronically signed by: Mimi Vaca PT DPT Please sign and return to therapist. Thank you for your referral.
== END 2024-05-12 09:25 | disposition home or self-care (01) ==
LOC: HO.PT 13:58
PROVIDERS: PCP Internal Medicine; Visit Provider Physician Assistant
DX: M25.311 Other instability, right shoulder (principal)
CPT/HCPCS: 97110; 97140; 97161; 97530

== ENCOUNTER → 2024-08-21 07:51 | Outpatient (BNVA) | payer OTHER, SELFPAY | PROVIDERS: Visit Provider Internal Medicine | DX: M75.41 Impingement syndrome of right shoulder (principal) | CPT/HCPCS: 99202 ==

== ENCOUNTER → 2024-08-26 08:09 | Outpatient (BNVA) | payer OTHER, SELFPAY | PROVIDERS: Visit Provider Internal Medicine | DX: M75.41 Impingement syndrome of right shoulder (principal) | CPT/HCPCS: 99213 ==

== ENCOUNTER 2024-09-10 10:04 | Outpatient (AMB) | payer OTHER, SELFPAY ==
[2024-09-10 10:24] VITALS: BMI 33.7
--- NOTE | 2024-09-10 10:24 | MHC.OFFVIS ---
Vital Signs 09/10/24 10:24 Height 5 ft 9 in Weight 228 lb BMI 33.7 Intake Visit Reasons: s/p RT Shoulder capsular plic 12/17/23 NE Intake Note: Korin is a 33 year old male who presents today for a post op appointment s/p right shoulder capsular plication 12/17/23 NE. At his last visit he was instructed to continue home therapy and avoid overhead lifting or hyper abduction activities. Patient states that the Right shoulder pain feels like it is pinching. He continues to do home exercises, which causes pain with over use. MRI appointment scheduled for 09/11/24. [place] work status : Driving only andavoid overhead lifting or hyper abduction activities. Allergies No Known Allergies Allergy (Verified 09/10/24 10:30) HPI HPI s/p RT Shoulder capsular plic 12/17/23 NE: Details: Korin is a 33 year old male who presents today for a post op appointment s/p right shoulder capsular plication 12/17/23 NE. At his last visit he was instructed to continue home therapy and avoid overhead lifting or hyper abduction activities. Patient states that the Right shoulder pain feels like it is pinching. He continues to do home exercises, which causes pain with over use. MRI appointment scheduled for 09/11/24. He has had no subsequent dislocations and his shoulder does occasionally feel tight. His primary complaint is pain with overhead activity. [place] work status : Driving only and avoid overhead lifting or hyper abduction activities PENDING S[facility] TO [facility] Medical History Marijuana smoker Psoriasis Surgical History History of ankle surgery [place] teeth extracted Social History (Updated 09/10/24 @ 10:35 by Rolanda Darby CCT-A) Are you a primary healthcare recruiter to a significant other at home: No Do you presently have visiting nurse or other home services: No Alcohol intake: current Alcohol intake frequency: holidays/special occasions only Patient Tobacco Use Status: Former Tobacco user Tobacco use type: Cigarette Years Smoked: 8 Substance Use Type: Marijuana Current occupational status: employed 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 no apprehension. Assessment & Plan Assessment & Plan (1) Instability of right shoulder joint: Code(s): M25.311 - Other instability, right shoulder Category: Medical Plan: Status post capsular plication. Work-related injury. And a repeat MRI was ordered. No recurrent instability but pain present. We will follow up once MRI is complete. Coding Level of Care Code Est Pt Level 3 (51912) Diagnoses Instability of right shoulder joint M25.311
== END 2024-09-10 11:04 | disposition home or self-care (01) ==
LOC: HO.HOS 10:05
PROVIDERS: Visit Provider Orthopaedic Surgery
DX: M25.311 Other instability, right shoulder (principal)
CPT/HCPCS: 99213

== ENCOUNTER → 2024-09-10 10:04 | Outpatient (BNVA) | payer OTHER, SELFPAY | PROVIDERS: Visit Provider Orthopaedic Surgery | DX: M25.311 Other instability, right shoulder (principal) | CPT/HCPCS: 99212 ==

== ENCOUNTER → 2024-09-17 07:15 | Outpatient (BNV) | payer OTHER, SELFPAY | PROVIDERS: Visit Provider Radiology Diagnostic Radiology | DX: M19.011 Primary osteoarthritis, right shoulder (principal) | CPT/HCPCS: 73221 ==

== ENCOUNTER 2024-09-17 07:18 | Outpatient (REF) | payer OTHER, SELFPAY ==
--- NOTE | ~2024-09-17 | MR_ITS ---
CLINICAL HISTORY: Right Shoulder Pain, impingement syndrome MR right shoulder without gadolinium Comparison: None Findings: No acute fracture or pathologic bone lesion. Mild acromioclavicular and glenohumeral osteoarthritis. Anteroinferior glenoid subchondral cystic change and edema. Subcortical cystic change and edema at the superior base of the greater tuberosity subjacent to the supraspinatus tendon insertion. Glenoid labral degenerative signal without discrete tear. The posterior labrum is diminutive which may be congenital or related to prior labral repair. No glenohumeral joint effusion. Small amount of fluid within the subacromial subdeltoid bursa. The supraspinatus and infraspinatus tendons are thickened and heterogeneous in signal intensity, compatible with moderate tendinopathy. No measurable tear or retraction. Small low-grade partial-thickness intrasubstance tears involving the distal subscapularis tendon. The teres minor tendon is intact. No rotator cuff atrophy or fatty replacement. The long head of the biceps is intact. IMPRESSION: 1. Moderate supraspinatus and infraspinatus tendinopathy without measurable tear or retraction. 2. Small low-grade partial-thickness intrasubstance tears within the distal subscapularis tendon. 3. Mild subacromial subdeltoid bursitis. 4. Mild acromioclavicular and glenohumeral osteoarthritis. This document has been electronically signed by: Von Ren DO on 09/17/2024 12:36:44
== END 2024-09-17 07:19 | disposition home or self-care (01) ==
LOC: HO.MRI 07:18
PROVIDERS: Visit Provider Internal Medicine
DX: M25.511 Pain in right shoulder (principal); M75.41 Impingement syndrome of right shoulder
CPT/HCPCS: 73221

== ENCOUNTER 2024-10-01 14:59 | Outpatient (AMB) | payer OTHER, SELFPAY ==
--- NOTE | 2024-10-01 15:04 | A.OFFVIS_ITS ---
Intake Visit Reasons: Tel-MRI Review Intake Note: Korin is a 33 year old right hand dominant male who presents today VIA Telephone for an MRI review of his right shoulder. At this time he is at work on light duty- Driving only with no overhead lifting or Hyperabduction activities. Hx of right shoulder capsular plication 12/17/23 Allergies No Known Allergies Allergy (Verified 09/10/24 10:30) HPI HPI Tel-MRI Review: Details: Korin is a 33 year old right hand dominant male who presents today VIA Telephone for an MRI review of his right shoulder. At this time he is at work on light duty- Driving only with no overhead lifting or Hyperabduction activities. He is feeling much better today. He states that he is ready to go back to work. He has been doing his home exercises and feels strong. He has had no dislocations since surgery. 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 Hx of right shoulder capsular plication 12/17/23 IMPRESSION: 1. Moderate supraspinatus and infraspinatus tendinopathy without measurable tear or retraction. 2. Small low-grade partial-thickness intrasubstance tears within the distal subscapularis tendon. 3. Mild subacromial subdeltoid bursitis. 4. Mild acromioclavicular and glenohumeral osteoarthritis. Assessment & Plan Assessment & Plan (1) Instability of right shoulder joint: Code(s): M25.311 - Other instability, right shoulder Category: Medical Plan: 33-year-old 9 months status post capsular plication with no dislocations but think planing of intermittent shoulder pain. We held him out of work and he actually states he has been feeling better. He is doing his home exercise program in his ready to go back to work. A note for return to work without restrictions was written. He will schedule for follow up to see me in 6-8 weeks. Coding Level of Care Code Est Pt Level 3 (80592) Diagnoses Instability of right shoulder joint M25.311
== END 2024-10-01 16:27 | disposition home or self-care (01) ==
LOC: HO.HOS 14:59
PROVIDERS: Visit Provider Orthopaedic Surgery
DX: M25.311 Other instability, right shoulder (principal)
CPT/HCPCS: 99213

== ENCOUNTER → 2024-10-01 14:59 | Outpatient (BNVA) | payer OTHER, SELFPAY | PROVIDERS: Visit Provider Orthopaedic Surgery | DX: Z71.2 Person consulting for explanation of examination or test findings (principal); M25.311 Other instability, right shoulder | CPT/HCPCS: 99212 ==

== ENCOUNTER → 2024-10-13 13:58 | Outpatient (BNVA) | payer OTHER, SELFPAY | PROVIDERS: Visit Provider Physician Assistant Medical | DX: Z02.79 Encounter for issue of other medical certificate (principal) ==

== ENCOUNTER 2025-02-04 10:12 | Outpatient (REF) | payer OTHER, SELFPAY ==
--- OUTSIDE RECORDS SUMMARY | 2025-02-04 12:21 | XMS_ITS | Clinical Summary ---
Author Organization [facility] Address [address] [place] [phone] Phone Care Team Providers Care Financial Coach Name Role Phone Brian House MD Primary Care Provider Allergies No known active allergies Medications No known medications Social History Tobacco Use Types Packs/Day Years Used Date Smoking Tobacco: Never Assessed Education Answer Date Recorded Are you interested in more education? Not on fede e 04/06/2024 Are you concerned about learning? Not on file 04/06/2024 No 04/06/2024 No 04/06/2024 Digital Access Answer Date Recorded No 04/06/2024 No 04/06/2024 Reliable internet access at home? Not on file 04/06/2024 Device with a working camera? Not on file Intimate Partner Violence Answer Date R ecorded Are you denied basic needs s uch as food, clothing, or medical care? No 04/06/2024 In the past 12 months have y ou been in a relationship with a person who hurts, threatens, or tries to control you? No 04/06/2024 Are you denied basic needs s uch as food, clothing, or medical care? No 04/06/2024 In the past 12 months have y ou been in a relationship with a person who hurts, threatens, or tries to control you? No 04/06/2024 Sex and Gender Information Value Date Recorded Sex Assigned at Not on file Legal Sex Male 11:24 AM EST Gender Identity Not on file Sexual Orientation Not on file Last Filed Vital Signs Vital Sign Reading Time Taken Comments Blood Pressure 163/82 04/06/2024 6:45 PM EST Pulse 60 04/06/2024 6:45 PM EST Temperature 36.8 C (98.2 F) 04/06/2024 6:45 PM EST Respiratory Rate 18 04/06/2024 6:45 PM EST Oxygen Saturation 100% 04/06/2024 6:45 PM EST Inhaled Oxygen Concentration - - Weight 102.1 kg (225 lb) 04/06/2024 11:44 AM EST Height 175.3 cm (5' 9 ) 04/06/2024 11:44 AM EST Body Mass Index 33.23 04/06/2024 11:44 AM EST Plan of Treatment Health Maintenance Due Date Last Done Comments Adult Td,Tdap Booster 1988 LIPID PANEL 1988 DEPRESSION SCREENING 2000 SMOKING Hx and SMOKELESS TOB ACCO SCREENING 2001 HEPATITIS C SCREENING 2006 HIV ONE-TIME SCREENING (18-6 5 YEARS) 2006 INFLUENZA VACCINE (#1) 2024 COVID-19 VACCINE (2024-2 6 season) 2024 SCREENING FOR DIABETES 04/06/2027 04/06/2024 HEPATITIS A VACCINES Aged Out No long er eligible based on patient's age to complete this topic HIB VACCINES Aged Out No longer eligi ble based on patient's age to complete this topic MENINGOCOCCAL VACCINES (ACWY) Aged Out No longer eligible based on patient's age to complete this topic MENINGOCOCCAL VACCINES (B) Aged Out N o longer eligible based on patient's age to complete this topic PNEUMOCOCCAL VACCINES (0-49 years) Aged Out No longer eligible based on patient's age to complete this topic Medical Devices Not on file Insurance [facility] [place] [address] [place] [address] [place] [address] [facility] Care Teams Financial Coach Relationship Specialty Start Date End Date Brian House MD [address] [place] [address] [id number] PCP - General Internal Medicine 04/06/24 Additional Source Comments The information contained in this document represents components of the legal health record. It is not the complete legal health record.[facility]
[2025-02-07 02:29] LABS: TS Negative Control Passed; TS Panel A 0; TS Panel B 0; TS Positive Control Passed; TSpotTB Negative (Negative)
== END 2025-02-04 10:13 | disposition home or self-care (01) ==
LOC: HO.10HDL 10:12
PROVIDERS: Visit Provider Dermatology
DX: L40.0 Psoriasis vulgaris (principal)
CPT/HCPCS: 36415; 86481